=== PATIENT | male | born 1935 | race Caucasian/White ===

== ENCOUNTER 2020-04-22 17:41 | Inpatient (IN) | payer MEDICARE, SELFPAY ==
[~2020-04-22] VITALS: Ht 182.9 cm; Wt 92.5 kg
--- NOTE | 2020-04-22 17:44 | NUR ---
BIBA TAKEN TO BED 6
[2020-04-22 18:01] VITALS: BP 142/75
--- NOTE | 2020-04-22 18:18 | NUR ---
85YO M BIBA FROM [facility] [place] C/O GENERALIZED WEAKNESS, SOB X 5 DAYS. DENIES FEVER, COUGH. PT WAS HOSPITALIZED IN [facility] LAST 04/18/20 FOR SAME SYMPTOMS. TESTED COVID+ UNKNOWN WEEKS AGO. PER EMS, BLOOD SUGAR 439 EN ROUTE. UPON ASSESSMENT, AOX3. VSS. PT ON 15L O2 VIA NONREBREATHER MASK, SATURATING 98%. NORMAL HEART RATE REGULAR RHYTHM. CLEAR BREATH SOUNDS ON ALL LUNG GARCIA. PT POSITIONED COMFORTABLY IN BED, 2 SIDERAILS UP. ERMD MADE AWARE OF PT STATUS. PMH: HTN, DM, RENAL FAILURE, PROSTATE CA NKA
--- NOTE | 2020-04-22 19:20 | NUR ---
REPORT GIVEN TO PALMA MANRIQUEZ. ALL CARE TRANSFERRED AT THIS TIME.
--- NOTE | 2020-04-22 19:21 | NUR ---
X-Ray at bedside.
[2020-04-22 19:30] LABS: BASOPHILS % (AUTO) 0.2 % (0.0-2.0); HEMATOCRIT 32.5 % (36-52); HEMOGLOBIN 10.7 g/dL (12.0-18.0); LYMPHOCYTES # (AUTO) 0.2 K/uL (2.0-11.5); LYMPHOCYTES % (AUTO) 2.5 % (20.5-51.1); MEAN CORPUSCULAR HEMOGLOBIN 26 pg (27-31); MEAN CORPUSCULAR HGB CONC 33 g/dL (33-37); MEAN CORPUSCULAR VOLUME 79.1 fL (80-94); MONOCYTES # (AUTO) 0.1 K/uL (0.8-1.0); MONOCYTES % (AUTO) 1.6 % (1.7-9.3); NEUTROPHILS # (AUTO) 7.7 K/uL (1.8-7.7); NEUTROPHILS % (AUTO) 95.7 % (42.2-75.2); PLATELET COUNT (AUTO) 261 K/uL (140-450); RED CELL DISTRIBUTION WIDTH 15.5 % (11.6-13.7); WHITE BLOOD COUNT (AUTO) 8.1 K/uL (4.8-10.8)
--- NOTE | 2020-04-22 19:31 | NUR ---
EKG PERFORMED AT BEDSIDE. EKG READS SINUS RHYTHM @ 94
[2020-04-22 19:50] LABS: ANION GAP 17.4 (8-16); ASPARTATE AMINOTRANSFERASE 12 U/L (15-37); CARBON DIOXIDE 22.5 mmol/L (21-32); CHLORIDE 108 mmol/L (98-107); CREATININE 2.8 mg/dL (0.6-1.3); POTASSIUM 4.9 mmol/L (3.5-5.1); SODIUM SERUM 143 mmol/L (136-145); TOTAL BILIRUBIN 0.3 mg/dL (0.0-1.0)
[2020-04-22 19:52] LABS: GLUCOSE 556 mg/dL (74-106); UREA NITROGEN, BLOOD 99 mg/dL (7-18)
[2020-04-22 19:56] LABS: PROTHROMBIN TIME 11.2 secs (10.8-13.4)
--- NOTE | 2020-04-22 20:00 | NUR ---
18G SL ESTABLISHED RIGHT A/C
[2020-04-22 20:03] LABS: LACTATE DEHYDROGENASE 283 U/L (85-227)
--- NOTE | 2020-04-22 20:08 | NUR ---
UNABLE TO PROVIDE UA AT THIS TIME
[2020-04-22 20:09] LABS: D-DIMER > 5000 ng/ml (0-400); FIBRINOGEN 642 mg/dL (200-400)
[2020-04-22 20:11] LABS: C-REACTIVE PROTEIN QUANT 17.8 mg/dL (0.0-0.9)
[2020-04-22 20:23] LABS: RSV NEGATIVE (NEGATIVE)
[2020-04-22] MEDS ORDERED: INSULIN REGULAR, HUMAN 100 UNIT/ML VIAL IV SCH (20:25)
--- NOTE | 2020-04-22 20:35 | NUR ---
Dr. Mclean examining patient.
[2020-04-22] MEDS ORDERED: cefTRIAXone 1,000 MG VIAL ONE (21:32)
[2020-04-22] MEDS ORDERED: DEXAMETHASONE 10 MG/ML VIAL IVP SCH (23:05)
[2020-04-22] MEDS ORDERED: NACL 0.9% 1,000 ML IV SCH (23:05)
[2020-04-22] MEDS ORDERED: BLOOD GLUCOSE MONITORING 1 DEV DEV FS SCH (23:30)
--- NOTE | 2020-04-22 23:55 | NUR ---
STRAIGHT CATHED FOR UA
[2020-04-23] VITALS (9 sets, daily range): BP systolic 52–147; BP diastolic 65–121
[2020-04-23 00:19] LABS: APPEARANCE,URINE CLEAR (CLEAR); BILIRUBIN,URINE NEGATIVE (NEGATIVE); BLOOD, URINE 1+ (NEGATIVE); COLOR,URINE YELLOW (YELLOW); LEUKOCYTE ESTERASE ,URINE NEGATIVE (NEGATIVE); NITRITE, URINE NEGATIVE (NEGATIVE); PH,URINE 5.5 (5.0-9.0); UGLUCOSE 2+ (NEGATIVE)
[2020-04-23 00:29] LABS: RBC,URINE 0-5 /HPF (0-5)
[2020-04-23 00:30] LABS: URINE AMORPHOUS URATE 1+ /HPF (None Seen)
--- NOTE | 2020-04-23 02:12 | NUR ---
blood sugar 352 mg/dl
[2020-04-23] MEDS: INSULIN REGULAR, HUMAN 100 UNIT in NACL 0.9% 100 ML IV SCH ×8 (02:20→20:30)
[2020-04-23 06:58] LABS: BASOPHILS % (AUTO) 0.1 % (0.0-2.0); EOSINOPHILS % (AUTO) 0.1 % (0.0-4.0); HEMATOCRIT 33.7 % (36-52); LYMPHOCYTES # (AUTO) 0.3 K/uL (2.0-11.5); LYMPHOCYTES % (AUTO) 2.9 % (20.5-51.1); MEAN CORPUSCULAR HEMOGLOBIN 26 pg (27-31); MEAN CORPUSCULAR HGB CONC 33 g/dL (33-37); MEAN CORPUSCULAR VOLUME 78.3 fL (80-94); MONOCYTES # (AUTO) 0.2 K/uL (0.8-1.0); MONOCYTES % (AUTO) 1.3 % (1.7-9.3); NEUTROPHILS # (AUTO) 11.6 K/uL (1.8-7.7); NEUTROPHILS % (AUTO) 95.6 % (42.2-75.2); PLATELET COUNT (AUTO) 283 K/uL (140-450); RED BLOOD CELL COUNT(AUTO) 4.31 MIL/uL (4.20-6.10); RED CELL DISTRIBUTION WIDTH 15.3 % (11.6-13.7); WHITE BLOOD COUNT (AUTO) 12.1 K/uL (4.8-10.8)
[2020-04-23] MEDS ORDERED: MORPHINE SULFATE 2 MG/ML SYR IVP PRN (07:20)
[2020-04-23] MEDS ORDERED: ZOLPIDEM 5 MG TAB PO PRN (07:20)
[2020-04-23] MEDS ORDERED: ONDANSETRON 4 MG/2 ML VIAL IVP PRN (07:20)
[2020-04-23] MEDS ORDERED: DOCUSATE SODIUM 100 MG GELCAP PO PRN (07:20)
[2020-04-23] MEDS ORDERED: HYDROcodone/APAP 5/325 MG 1 TAB TAB PO PRN (07:20)
[2020-04-23] MEDS ORDERED: LORazepam 2 MG/ML VIAL IM/IVP PRN (07:20)
[2020-04-23] MEDS ORDERED: ALBUTEROL HFA MDI 90 MCG/ACTUATION 8 GM INH PRN ×2 (07:20→18:45)
[2020-04-23] MEDS ORDERED: cefTRIAXone 1,000 MG VIAL ONE (07:31)
[2020-04-23 07:52] LABS: ALBUMIN 2.1 g/dL (3.4-5.0); AMYLASE 70 U/L (25-115); ANION GAP 19.7 (8-16); ASPARTATE AMINOTRANSFERASE 14 U/L (15-37); CARBON DIOXIDE 22.6 mmol/L (21-32); CHLORIDE 113 mmol/L (98-107); CHOL/HDL RATIO 1.9 (1-4.5); CREATININE 2.7 mg/dL (0.6-1.3); GLUCOSE 191 mg/dL (74-106); HDL CHOLESTEROL 52 mg/dL (40-60); LDL (CALC) 38 mg/dL (60-100); LIPASE 287 U/L (73-393); MAGNESIUM 3.2 mg/dL (1.8-2.4); PHOSPHORUS 3.6 mg/dL (2.5-4.9); POTASSIUM 4.3 mmol/L (3.5-5.1); SODIUM SERUM 151 mmol/L (136-145); THYROID STIMULATING HORMONE 0.22 uIU/mL (0.34-3.74); TOTAL BILIRUBIN 0.2 mg/dL (0.0-1.0); TRIGLYCERIDES 52 mg/dL (30-150)
[2020-04-23] MEDS ORDERED: AZITHROMYCIN 250 MG TAB PO ONE (08:00)
[2020-04-23] MEDS: ZINC SULF 220 MG CAP PO SCH ×3 (08:15→22:37)
[2020-04-23] MEDS: ENOXAPARIN 30 MG/0.3 ML SYR SUBQ SCH (08:15)
--- NOTE | 2020-04-23 08:29 | NUR ---
PATIENT GOWN AND LINEN CHANGED, DIAPER PLACED ON PATIENT
[2020-04-23 08:54] LABS: UREA NITROGEN, BLOOD 104 mg/dL (7-18)
[2020-04-23] MEDS ORDERED: ENOXAPARIN 40 MG/0.4 ML SYR SUBQ SCH (09:00)
[2020-04-23] MEDS ORDERED: ASCORBIC ACID 500 MG TAB PO SCH (09:00)
[2020-04-23] MEDS ORDERED: VITAMIN D 400 IU TAB PO SCH (09:00)
--- NOTE | 2020-04-23 09:15 | NUR ---
Patient will be admitted to [facility]. Admited to ICU. Will go to room 3. Belongings list completed. Report to JUNIE WALDROP.
--- NOTE | 2020-04-23 09:30 | NUR ---
PATIENT ARRIVED AT 0930 FROM ED. REPORT GIVEN AT BEDSIDE BY RENETTA WALDROP. PT CONFUSED, LETHARGIC, AND RESTLESS, BUT ABLE TO REORIENT. VITALS STABLE WITH NONREBREATHER AT 10L, PT IN SINUS TACH IN LOW 100S, AND BREATHING MID 20S. PT APPEARS CALM AND DENIES PAIN. PULSE REGULAR. WHEN ASKED QUESTIONS, PATIENT'S SPEECH IS SLIGHTLY GARBLED AND MUMBLED. 20 GAUGE IV CAPPED AND PATENT IN R FOREARM. WILL CONTINUE TO MONITOR AND ASSESS.
[2020-04-23] MEDS: NACL 0.45% 1,000 ML IV SCH ×2 (10:18→22:36)
--- NOTE | 2020-04-23 10:25 | NUR ---
CALLED TO PTS ROOM FOR DESATURATION. FOUND PT ON SIMPLE MASK FLUSHED WITH SPO2 85%. PLACED ON 15L NRB, SPO2 WENT UP TO 98%. WILL CONTINUE TO MONITOR.
--- NOTE | 2020-04-23 11:00 | NUR ---
PICC LINE TEAM PRESENT IN ROOM PLACING LINE FOR NEED FOR POTENTIAL PRESSOR USE. PATIENT CONSENT RECEIVED. BP CURRENTLY STABLE. WILL CONTINUE TO MONITOR AND ASSESS.
--- NOTE | 2020-04-23 12:25 | NUR ---
PT GETTING RESTLESS CONFUSE TAKE OFF HIS CLOSE ,TRY TO GET OUT HIS OF BED.ATIVAN IV P GIVING ORDERED.
[2020-04-23] MEDS ORDERED: DEXMEDETOMIDINE HCL 400 MCG in NACL 0.9% 96 ML IV PRN (12:55)
--- NOTE | 2020-04-23 13:00 | NUR ---
PATIENT NO LONGER REORIENTABLE. PT REMOVED IV FROM R FOREARM AND ATTEMPTING TO REMOVE TELE LEADS AND PICC LINE. PT CRAWLING OVER BED RAILS. NOTIFIED MD AND REQUESTED ORDER FOR PRECEDEX AND RESTRAINTS. PRN ATIVAN NOT EFFECTIVE. WILL CONTINUE TO MONITOR
--- NOTE | 2020-04-23 13:40 | NUR ---
PT. HARDEEP JACOB [[phone]] CHECK FOR HIS CONDITION..
--- NOTE | 2020-04-23 15:07 | NUR ---
PATIENT HAS BEEN SCREENED AND CATEGORIZED HIGH NUTRITION RISK. PATIENT WILL BE SEEN WITHIN 1-2 DAYS OF ADMISSION. 04/23/20-04/24/[address]
[2020-04-23 15:37] LABS: CARBON DIOXIDE 22.7 mmol/L (21-32); CHLORIDE 113 mmol/L (98-107); CREATININE 2.8 mg/dL (0.6-1.3); GLUCOSE 295 mg/dL (74-106); POTASSIUM 4.7 mmol/L (3.5-5.1); SODIUM SERUM 149 mmol/L (136-145)
[2020-04-23 15:39] LABS: UREA NITROGEN, BLOOD 108 mg/dL (7-18)
--- NOTE | 2020-04-23 16:00 | NUR ---
PRECEDEX GTT OFF AND PT APPEARS CALM AND VITAL SIGNS STABLE. NONREBREATHER REDUCED TO 8L. SINUS RHYTHM. PT CONTINUOUSLY CONFUSED, BUT PLEASANT. WILL CONTINUE TO MONITOR AND ASSESS.
[2020-04-23] MEDS ORDERED: DEXTROSE 50% 50 ML SYR IVP PRN (18:10)
[2020-04-23] MEDS ORDERED: AZITHROMYCIN 250 MG TAB PO SCH (18:45)
[2020-04-23] MEDS: BLOOD GLUCOSE MONITORING 1 DEV DEV FS SCH ×3 (19:49→22:44)
--- NOTE | 2020-04-23 20:00 | NUR ---
RECEIVED PATIENT IN BED. PT DROWSY BUT EASILY AROUSABLE. PATIENT AOX1. PT PLACED ON NRB AT 12L, O2 SAT 98%. NO SOB OR S/S OF DISTRESS AT THIS TIME. DOUBLE LUMEN PICC NOTED ON THE RIGHT UPPER ARM, BOTH LUMENS FLUSH WITH NO RESISTANCE AND WITH GOOD BLOOD RETURN. PT CURRENTLY ON INSULIN GTT. BS 186. WILL CONTINUE TO MONITOR
[2020-04-23 20:26] LABS: ANION GAP 16.8 (8-16); CARBON DIOXIDE 23.6 mmol/L (21-32); CHLORIDE 113 mmol/L (98-107); CREATININE 2.6 mg/dL (0.6-1.3); GLUCOSE 213 mg/dL (74-106); POTASSIUM 4.4 mmol/L (3.5-5.1); SODIUM SERUM 149 mmol/L (136-145)
--- NOTE | 2020-04-23 20:30 | NUR ---
PT TEMP 94.4 TAKEN AXILLARY. PATIENT PLACED ON GHASSAN HUGGER
[2020-04-23 20:37] LABS: UREA NITROGEN, BLOOD 111 mg/dL (7-18)
[2020-04-23] MEDS ORDERED: BLOOD GLUCOSE MONITORING 1 DEV DEV FS SCH (21:00)
--- NOTE | 2020-04-23 21:16 | NUR ---
PT'S TEMP 96.9 AXILLARY
--- NOTE | 2020-04-23 21:40 | NUR ---
RT WAS NOTIFIED THAT PT IS ON 8L NRB MASK. SWITCHED TO 8L BUBBLE HIGH FLOW NASAL CANNULA. SPO2 95%. RN NOTIFIED. WILL CONTINUE TO MONITOR.
[2020-04-23] MEDS: DEXT 5% / NACL 0.45% 1,000 ML IV SCH (22:36)
--- NOTE | 2020-04-23 23:00 | NUR ---
OBTAINED CONSENT TO TRANSFUSE PLASMA FROM PATIENT'S NEPHEW, MARYANA JACOB.
[2020-04-24] VITALS (19 sets, daily range): BP systolic 115–162; BP diastolic 55–86
[2020-04-24] MEDS: BLOOD GLUCOSE MONITORING 1 DEV DEV FS SCH ×23 (00:31→23:00)
--- NOTE | 2020-04-24 03:08 | NUR ---
SPOKE TO DR ALVA AND INFORMED HER ABOUT PATIENT'S LATEST BLOOD SUGAR OF 90 AND ANION GAP OF 16.8. PER DOCTOR, FOLLOW DKA PROTOCOL AND TITRATE D5 1/2NS NEEDED.
[2020-04-24 04:24] LABS: ANION GAP 16.5 (8-16); CARBON DIOXIDE 22.3 mmol/L (21-32); CHLORIDE 116 mmol/L (98-107); CREATININE 2.5 mg/dL (0.6-1.3); GLUCOSE 164 mg/dL (74-106); POTASSIUM 3.8 mmol/L (3.5-5.1); SODIUM SERUM 151 mmol/L (136-145)
[2020-04-24 04:26] LABS: UREA NITROGEN, BLOOD 108 mg/dL (7-18)
--- NOTE | 2020-04-24 05:25 | NUR ---
1 UNIT CONVALESCENT PLASMA TRANSFUSED. NO ADVERSE REACTION. PATIENT TOLERATED WELL
--- NOTE | 2020-04-24 07:15 | NUR ---
HANDOFF REPORT RECEIVED FROM NEWS COPY EDITOR RN. POC REVIEWED AND DISCUSSED. PT IS RESTLESS. PULLING TUBES AND LINES. BILATERAL SOFT WRIST RESTRAINTS IN PLACE. RELEASED MADE. PALPABLE PULSES TO DISTAL EXTREMITIES. ON 4L O2 VIA N/C. NO SOB NOTED. NO CYANOSIS. ON INSULIN GTT 0.05 U/KG/H. CARMINE PICC INTACT AND PATENT. 1/2 NS RUNNING AT 150 ML/HR. PRECEDEX GTT OFF. HOB ELEVATED. AFEBRILE. WILL CONTINUE TO MONITOR.
--- NOTE | 2020-04-24 08:15 | NUR ---
SEEN AND EXAMINED BY DR. ALVA. NOTIFIED PT'S ELEVATED BUN/CREA. WILL FF UP NEPRO CONSULT.
[2020-04-24] MEDS: INSULIN LISPRO SLIDING SCALE 100 UNITS/ML VIAL SUBQ PRN (08:48)
[2020-04-24] MEDS: ENOXAPARIN 30 MG/0.3 ML SYR SUBQ SCH (08:57)
[2020-04-24] MEDS: AZITHROMYCIN 250 MG TAB PO SCH (08:58)
[2020-04-24] MEDS: VITAMIN D 400 IU TAB PO SCH (08:58)
[2020-04-24] MEDS: ASCORBIC ACID 500 MG TAB PO SCH (08:58)
[2020-04-24] MEDS: ZINC SULF 220 MG CAP PO SCH ×2 (08:59→20:27)
[2020-04-24] MEDS ORDERED: AZITHROMYCIN 250 MG TAB PO SCH (09:00)
[2020-04-24] MEDS: NACL 0.45% 1,000 ML IV SCH ×2 (09:00→21:44)
[2020-04-24] MEDS ORDERED: ENOXAPARIN 40 MG/0.4 ML SYR SUBQ SCH (09:00)
[2020-04-24 09:04] LABS: CARBON DIOXIDE 19.4 mmol/L (21-32); CHLORIDE 113 mmol/L (98-107); CREATININE 2.7 mg/dL (0.6-1.3); GLUCOSE 250 mg/dL (74-106); POTASSIUM 4.4 mmol/L (3.5-5.1); SODIUM SERUM 150 mmol/L (136-145)
[2020-04-24 09:23] LABS: UREA NITROGEN, BLOOD 111 mg/dL (7-18)
--- NOTE | 2020-04-24 11:00 | NUR ---
SEEN BY PHYSICAL THERAPIST. PT PERFORMED. GATE UNSTABLE.
[2020-04-24] MEDS: DEXT 5% / NACL 0.45% 1,000 ML IV SCH (12:04)
[2020-04-24 12:25] LABS: ANION GAP 20.7 (8-16); CARBON DIOXIDE 17.7 mmol/L (21-32); CHLORIDE 113 mmol/L (98-107); CREATININE 2.7 mg/dL (0.6-1.3); GLUCOSE 304 mg/dL (74-106); POTASSIUM 4.4 mmol/L (3.5-5.1); SODIUM SERUM 147 mmol/L (136-145)
[2020-04-24 12:27] LABS: UREA NITROGEN, BLOOD 110 mg/dL (7-18)
--- NOTE | 2020-04-24 14:21 | NUR ---
04/24/20 RD INITIAL ASSESSMENT COMPLETED PLEASE REFER TO NUTRITION ASSESSMENT UNDER CARE ACTIVITY FOR ESTIMATED NUTRITIONAL NEEDS. 1. CONTINUE CLEAR LIQUID DIET TOLERATED 2. PENDING SWALLOW EVALUATION FOR DIET TEXTURE RECOMMENDATIONS 3. RECOMMEND CCHO 60 [address] DI[address] RESTRICTIONS 4. RD TO FOLLOW-UP 2-3 DAYS, HIGH RISK JOSH NICHOLSON RD
--- NOTE | 2020-04-24 15:23 | NUR ---
SEEN BY SPEECH THERAPIST, RENDERED SWALLOW EVAL. TOTAL CARE GIVEN. NO CHANGE OF CONDITION.
--- NOTE | 2020-04-24 16:00 | NUR ---
SPEECH THERAPIST RECOMMENDS THICK/NECTAR CONSISTENCY DIET. WILL FF-UP. Addendum: 04/24/20 at 1809 by Adonay Palafox RN PUREE/NECTAR THICK LIQUIDS DIET
[2020-04-24 16:58] LABS: ANION GAP 21.5 (8-16); CARBON DIOXIDE 19.1 mmol/L (21-32); CHLORIDE 112 mmol/L (98-107); CREATININE 2.7 mg/dL (0.6-1.3); GLUCOSE 321 mg/dL (74-106); POTASSIUM 4.6 mmol/L (3.5-5.1); SODIUM SERUM 148 mmol/L (136-145)
--- NOTE | 2020-04-24 17:03 | NUR ---
*ST: Bedside Swallow Evaluation* Pt is 85 yo [place] [facility] [place]. Work-up at this hospital noted (+) COVID-19 PCR 2/2 and (+) influenza B. Pt now started on Tamiflu. Pt hospitalized and d/c from OSH 04/18/20 for same symptoms of SOB, +COVID PCR at OSH 04/15/20. PMHx CKD, prostate CA, HTN, DM. CXR 2/3 - bilat multilobar PNA (with peripheral distribution), stable; findings could represent coronavirus (COVID-19) infection; other forms of PNA are not excluded. Cleared with RNAdonay, for BDSE. Pt seen bedside, on +COVID-19 isolation precautions, on 4L O2 nc with humidifier, O2 sats labile and ranged from 88-96% during session, ?anxious, distracted, often had eyes closed and talked about persons or events not pertaining to or relevant to present setting. Pt also had GHASSAN-hugger in place. Per chart, Pt received Chopped/Thin Liquids at [facility] [place] to [place]. Pt had dentures in place. Ice chips x2, ~1oz thin by straw and tsp, ~2oz apple sauce, 1 tsp canned MS pears, and ~1oz nectar thick juice given by tsp. Pt did not consistently engage in labial closure to strip bolus from tsp, requiring [employer] to touch upper lip with tsp and occasionally pour bolus into oral cavity. With apple sauce trials, Pt often threw his head back despite [employer] requesting Pt to keep his head neutral. Noted slight residue in oral cavity post swallow of puree but no overt coughing nor throat clearing. With 1 tsp canned MS pears, Pt used front teeth to breakdown bolus but no anterior-posterior transfer observed requiring removal by [employer]. Pt sipped then blew thin liquid back into cup via straw. Fairly consistent spillage from L labial seal observed with tsp, suspect poor control of bolus, coughing with 50% of thin trials. With nectar, little to no spillage observed, slight oral residue, no overt coughing nor throat clearing. Pt declined further POs, verbalizing that he was cold and wanted to rest. Plan of care d/w pt and pts RN. P: Rec downgrade to Puree/[place] Thick Liquids by tsp, 1:1 feed Follow safe swallow strategies, oral care, aspiration precautions [employer] f/u for possible texture/consistency upgrade if Pt sustains attention to task -Quin Velazquez MA, [facility]-[employer] Addendum: 04/24/20 at [address] Amended: Links added.
[2020-04-24] MEDS: SODIUM BICARBONATE 650 MG TAB PO SCH (17:07)
[2020-04-24 17:09] LABS: UREA NITROGEN, BLOOD 103 mg/dL (7-18)
--- NOTE | 2020-04-24 19:30 | NUR ---
RECEIVED REPORT FROM DAYSHIFT NURSE. PATIENT ALERT AND ORIENTED X2 TO PERSON AND EVENT. PATIENT ALERT AND TRACKING WITH EYES WHEN ENTERING THE ROOM. PATIENT NASAL CANNULA AT 4 LPM, TOLERATING WELL, O2 SATURATION AT 96%. HOB ABOVE 30 DEGREES, SITTING IN A POSITION OF COMFORT. CONTINUOUS CARDIAC MONITORING, SINUS TACHYCARDIA AT 107 HR. IV ACCESS AT RIGHT UPPER PICC LINE DOUBLE LUMEN. DRIPS CURRENTLY RUNNING ARE 0.05 UNITS/KG/HR AND 0.45% NS 150 ML/HR. PATIENT WEIGHT IS 87.9 KG. PATIENT ASSISTED WITH ADL'S AT BEDSIDE. PATIENT IN SOFT WRIST RESTRAINTS, OCCASIONALLY TRYING TO PULL OUT LINES, POSITIVE PMSC'S (PULSE, MOTOR, SENSORY, CAP REFILLS). WILL CONTINUE TO ROUND AND CHECK/RELEASE/REAPPLY RESTRAINTS HOURLY. PATIENT OFFLOADED FROM PRESSURE POINTS WITH USE OF PILLOWS AND REPOSITIONING. BED LOCKED AND LOWERED INTO A POSITION OF SAFETY. WILL CONTINUE TO CLOSELY MONITOR AND FREQUENTLY ROUND THROUGHOUT SHIFT.
--- NOTE | 2020-04-24 19:33 | NUR ---
HANDOFF REPRT ENDORSED TO OBSTETRICS/GYNECOLOGY NURSE RN. POC REVIEWED AND DISCUSSED. NO CHANGE OF CONDITION. PT IS RESTING, EYES OPEN. KEPT BILATERAL SOFT WRIST RESTRAINTS. BS 368. PT TOLERATED WELL WITH PUREE/THICK LIQUID DIET.
--- NOTE | 2020-04-24 20:00 | NUR ---
ACCUCHECK, SAFETY CHECKS, REPOSITIONING, RESTRAINTS RELEASED AND REAPPLIED WITH NURSE SUPERVISION. WILL CONTINUE TO MONITOR CLOSELY AND FREQUENTLY ROUND.
[2020-04-24 21:00] LABS: ANION GAP 22.2 (8-16); CARBON DIOXIDE 17.7 mmol/L (21-32); CHLORIDE 110 mmol/L (98-107); CREATININE 2.8 mg/dL (0.6-1.3); POTASSIUM 4.9 mmol/L (3.5-5.1)
--- NOTE | 2020-04-24 21:00 | NUR ---
ACCUCHECK, RESTRAINTS RELEASED AND REAPPLIED, SAFETY CHECKS, REPOSITIONING AND POSITIVE PMSC'S. WILL CONTINUE TO CLOSELY MONITOR AND FREQUENTLY ROUND.
[2020-04-24 21:02] LABS: GLUCOSE 515 mg/dL (74-106); UREA NITROGEN, BLOOD 103 mg/dL (7-18)
--- NOTE | 2020-04-24 21:30 | NUR ---
PATIENT RESTING COMFORTABLY, HOB 30 DEGREES, TOLERATING NASAL CANNULA 4 LPM WELL, RESTING CONTENT AND COMFORTABLE. WILL CONTINUE TO DO Q1 ACCUCHECKS. WILL CONTINUE TO CLOSELY MONITOR AND FREQUENTLY ROUND.
[2020-04-24 21:52] LABS: SODIUM SERUM 145 mmol/L (136-145)
--- NOTE | 2020-04-24 22:00 | NUR ---
CALLED DR. ALVA AND ADVISED OF ELEVATED BLOOD SUGAR CRITICAL LAB VALUE, CALLED IN FROM THE LAB. WILL CONTINUE TO CLOSELY MONITOR AND FREQUENTLY ROUND.
--- NOTE | 2020-04-24 22:10 | NUR ---
ACCUCHECK, RESTRAINTS RELEASED AND REAPPLIED, POSITIVE PMSC'S INTACT. PATIENT CONTENT AND TRYING TO REST/SLEEP. TOLERATING NASAL CANNULA 4 LPM WELL. WILL CONTINUE TO CLOSELY MONITOR AND FREQUENTLY ROUND.
--- NOTE | 2020-04-24 23:00 | NUR ---
ACCUCHECK, RESTRAINTS RELEASED AND REAPPLIED, POSITIVE PMSC'S INTACT, REPOSITIONING AND COMFORT MEASURES. PATIENT CONTINUES TO REST. WILL CONTINUE TO CLOSELY MONITOR AND FREQUENTLY ROUND.
[2020-04-25] VITALS (24 sets, daily range): BP systolic 115–169; BP diastolic 55–93
--- NOTE | 2020-04-25 | NUR ---
PATIENT CONTINUES TO SLEEP, CONTENT. ACCUCHECK, RESTRAINTS RELEASED AND REAPPLIED. SAFETY CHECKS, REPOSITIONING AND COMFORT MEASURES PROVIDED. NORMAL SINUS ON THE MONITOR. WILL CONTINUE TO CLOSELY MONITOR AND FREQUENTLY ROUND.
[2020-04-25 00:47] LABS: ANION GAP 21.1 (8-16); CARBON DIOXIDE 16.9 mmol/L (21-32); CHLORIDE 110 mmol/L (98-107); CREATININE 2.8 mg/dL (0.6-1.3); SODIUM SERUM 143 mmol/L (136-145)
[2020-04-25 00:49] LABS: GLUCOSE 531 mg/dL (74-106); UREA NITROGEN, BLOOD 102 mg/dL (7-18)
[2020-04-25] MEDS: BLOOD GLUCOSE MONITORING 1 DEV DEV FS SCH ×24 (01:00→23:00)
--- NOTE | 2020-04-25 01:00 | NUR ---
PATIENT HYGIENE, REPOSITIONING, COMFORT MEASURES AND SAFETY CHECKS PROVIDED. ACCUCHECK AND RESTRAINTS RELEASED AND REAPPLIED. WILL CONTINUE TO CLOSELY MONITOR AND FREQUENTLY ROUND.
[2020-04-25] MEDS: INSULIN REGULAR, HUMAN 100 UNIT in NACL 0.9% 100 ML IV SCH ×4 (01:40→15:44)
--- NOTE | 2020-04-25 02:00 | NUR ---
ACCUCHECK, RESTRAINTS RELEASED AND REAPPLIED, PMSC'S POSITIVE AND INTACT. REPOSITIONING AND COMFORT MEASURES IN PLACE. PATIENT STILL TOLERATING NASAL CANNULA 4 LPM WELL. TOLERATING INSULIN/IVF THERAPY WELL. WILL CONTINUE TO CLOSELY MONITOR AND FREQUENTLY ROUND.
--- NOTE | 2020-04-25 03:00 | NUR ---
PATIENT CONTINUES TO SLEEP/REST IN A POSITION OF COMFORT. PATIENT RESTRAINTS RELEASED AND REAPPLIED, PMSC'S POSITIVE AND INTACT. ACCUCHECK PROVIDED. PATIENT CONTINUES TO BE NORMAL SINUS ON THE MONITOR. WILL CONTINUE TO CLOSELY MONITOR AND FREQUENTLY ROUND.
--- NOTE | 2020-04-25 04:00 | NUR ---
PATIENT PROVIDED FRESH LINENS, SPONGE BATH, HYGIENE CARE, REPOSITIONING AND COMFORT MEASURES. PATIENT PLACED BACK INTO POSITION OF COMFORT. RESTRAINTS RELEASED AND REAPPLIED, POSITIVE PMSC'S INTACT. RESTING COMFORTABLY. WILL CONTINUE TO CLOSELY MONITOR AND FREQUENTLY ROUND.
--- NOTE | 2020-04-25 05:00 | NUR ---
PATIENT SLEEPING IN A POSITION OF COMFORT. CONTINUES TO TOLERATE THE INSULIN/IVF THERAPIES WELL. NASAL CANNULA 4 LPM COMFORTABLE FOR THE PATIENT. REPOSITIONING, ACCUCHECK, RESTRAINTS RELEASED AND REAPPLIED, POSITIVE PMSC'S INTACT. WILL CONTINUE TO CLOSELY MONITOR AND FREQUENTLY ROUND.
[2020-04-25 05:40] LABS: BASOPHILS % (AUTO) 0.1 % (0.0-2.0); HEMATOCRIT 30.3 % (36-52); HEMOGLOBIN 9.9 g/dL (12.0-18.0); LYMPHOCYTES # (AUTO) 0.1 K/uL (2.0-11.5); LYMPHOCYTES % (AUTO) 1.4 % (20.5-51.1); MEAN CORPUSCULAR HEMOGLOBIN 26 pg (27-31); MEAN CORPUSCULAR HGB CONC 33 g/dL (33-37); MEAN CORPUSCULAR VOLUME 79.1 fL (80-94); MONOCYTES # (AUTO) 0.1 K/uL (0.8-1.0); MONOCYTES % (AUTO) 0.9 % (1.7-9.3); NEUTROPHILS % (AUTO) 97.6 % (42.2-75.2); PLATELET COUNT (AUTO) 213 K/uL (140-450); RED BLOOD CELL COUNT(AUTO) 3.84 MIL/uL (4.20-6.10); RED CELL DISTRIBUTION WIDTH 15.6 % (11.6-13.7); WHITE BLOOD COUNT (AUTO) 10.3 K/uL (4.8-10.8)
[2020-04-25 06:18] LABS: MAGNESIUM 2.9 mg/dL (1.8-2.4); PHOSPHORUS 5.6 mg/dL (2.5-4.9)
[2020-04-25 07:08] LABS: ANION GAP 24.6 (8-16); CARBON DIOXIDE 14.5 mmol/L (21-32); CHLORIDE 111 mmol/L (98-107); CREATININE 2.7 mg/dL (0.6-1.3); POTASSIUM 5.1 mmol/L (3.5-5.1); SODIUM SERUM 145 mmol/L (136-145)
--- NOTE | 2020-04-25 07:30 | NUR ---
REPORT GIVEN AND CARE TRANSFERRED TO [facility].
[2020-04-25] MEDS: DEXT 5% / NACL 0.45% 1,000 ML IV SCH ×2 (08:00→14:03)
[2020-04-25 08:23] LABS: GLUCOSE 496 mg/dL (74-106); UREA NITROGEN, BLOOD 97 mg/dL (7-18)
[2020-04-25 08:28] LABS: ANION GAP 22.6 (8-16); CARBON DIOXIDE 16.8 mmol/L (21-32); CHLORIDE 115 mmol/L (98-107); CREATININE 2.6 mg/dL (0.6-1.3); GLUCOSE 197 mg/dL (74-106); POTASSIUM 4.4 mmol/L (3.5-5.1); SODIUM SERUM 150 mmol/L (136-145)
[2020-04-25 08:45] LABS: UREA NITROGEN, BLOOD 94 mg/dL (7-18)
[2020-04-25] MEDS: OSELTAMIVIR PHOSPHATE 30 MG CAP PO SCH (09:00)
[2020-04-25] MEDS: VITAMIN D 400 IU TAB PO SCH (09:37)
[2020-04-25] MEDS: SODIUM BICARBONATE 650 MG TAB PO SCH ×3 (09:37→17:44)
[2020-04-25] MEDS: ZINC SULF 220 MG CAP PO SCH ×2 (09:38→21:15)
[2020-04-25] MEDS: ASCORBIC ACID 500 MG TAB PO SCH (09:38)
[2020-04-25] MEDS: AZITHROMYCIN 250 MG TAB PO SCH (09:39)
[2020-04-25] MEDS: ENOXAPARIN 30 MG/0.3 ML SYR SUBQ SCH (09:51)
--- NOTE | 2020-04-25 10:11 | NUR ---
MEDICINE WAS GIVEN JUST 25% ONLY BECAUSE PT IS VERY SLEEPY AND MENTIONED TO CHARGE NURSE, sPEECH THERAPIST WAS HERE AND ADVISED TO HOLD PO INCLUDING MEDS IF PT UNABLE TO DUE TO LETHARGINESS
--- NOTE | 2020-04-25 10:21 | NUR ---
*ST: Note* Attempted f/u for ongoing swallow analysis and possible diet consistency upgrade. However, per charge SEWING DEMONSTRATOR, Edwige, Pt somnolent since the beginning of shift and POs withheld. Per SEWING DEMONSTRATOR, made Pt NPO at this time secondary to very high blood sugar value. -Quin Velazquez MA, CCC-[employer]AST[employer]
--- NOTE | 2020-04-25 11:00 | NUR ---
SPOKE TO DR ALVA REGARDING PT UNABLE TO SWALLOW TODAY PT IS VERY LETHARGIC, UNABLE TO GIVE PO MEDICATIONS. Addendum: 04/25/20 at 1122 by Edwige Sawant RN DR BASS UNDERSTANDING, WILL CONTINUE TO MONITOR.
--- NOTE | 2020-04-25 11:13 | NUR ---
SOCIAL WORK NOTE: Patient's Orientation Unable To Assess Information Provided By PALMA MONTES Comments SW WAS UNABLE TO MEET PATIENT AT BEDSIDE. SW CONTACTED JYOTI TO COMPLETE ASSESSMENT. Lead Furnace Operator, Realtionship and Phone Number PALMA MONTES [phone] NIDIA JACOB NEPHEW [phone] Healthcare Power of Event Sales Representative No Does Patient Have a POLST No Identifying Problems No Social Work Triggers Is A Social Work Consult Needed No Mandate Report Filed No Explanation Of Identifying Problems PATIENT IS AN 85-YEAR-OLD MALE ADMITTED FOR SEPSIS AND COVID. PATIENT HAS PMHX OF CKD, DM, AND HTN. Admitted From Jail Facility Jail Facility [facility] - [phone] Pre-Admission Level Of Functioning Status Independent With DME Prior Resources/Services Used In Last 12 Months Home Infusion Services SNF Rehab/Skilled Prior Resources/Service Comments PAT[place] [facility] [place] Home Oxygen Dialysis Comments N/A Patient Had Caregiver No Home Support No Caregiver Issues Financial Issues No Known Financial Issue Referral To The Financial Counselor Needed No Factors/Needs No D/C Needs Identified Explanation And Or Other Factors Affecting/Possible DC Needs JYOTI PALMA NIDIA STATED THAT SHE WOULD PREFER IF PATIENT RETURNS HOME AT DISCHARGE WITH HOME HEALTH. PALMA PROVIDED ADDRSES: [address] [place] [address]. PALMA STATED SHE WOULD PROVIDE TRANSPORTATION AT DISCHARGE. Pt/Rep Participated In Discharge Plan Yes Patient/Family Agress With Discharge Plan Yes Discharge Plan Comments TENTATIVE DISCHARGE PLAN IS FOR PATIENT TO RETURN HOME. DC Plan Status Initiated
--- NOTE | 2020-04-25 12:14 | NUR ---
bs is 263 and IV .5 N. Saline up to 200ml/hr
[2020-04-25 12:30] LABS: ANION GAP 23.7 (8-16); CHLORIDE 112 mmol/L (98-107); CREATININE 2.5 mg/dL (0.6-1.3); GLUCOSE 312 mg/dL (74-106); POTASSIUM 4.7 mmol/L (3.5-5.1); SODIUM SERUM 146 mmol/L (136-145)
[2020-04-25 12:31] LABS: UREA NITROGEN, BLOOD 93 mg/dL (7-18)
[2020-04-25] MEDS: NACL 0.45% 1,000 ML IV SCH (13:17)
--- NOTE | 2020-04-25 13:20 | NUR ---
will let Dr holbrook will be informed
[2020-04-25 16:37] LABS: ANION GAP 25.3 (8-16); CARBON DIOXIDE 12.7 mmol/L (21-32); CHLORIDE 112 mmol/L (98-107); CREATININE 2.6 mg/dL (0.6-1.3); GLUCOSE 374 mg/dL (74-106); SODIUM SERUM 145 mmol/L (136-145)
[2020-04-25 16:40] LABS: UREA NITROGEN, BLOOD 93 mg/dL (7-18)
--- NOTE | 2020-04-25 17:00 | NUR ---
PT HAD BEEN TACHYPNEIC BET 35-38 ALL DAY AND OBSERVED TO BE DESATURATING TO 88% AT 4 LITERS HUMIDIFIED 02 AND CHARGE NURSE WAS INFORMED AND RESP THERAPIST WAS CALLED. ATIVAN I MG iVP GIVEN TO BRING DOWN RR. rT CAME AND INCREASE 02 AT 10 LITERS PER NASAL CANNULA HUMIDIFIED. PLACE PT , ON HIGH FOWLERS POSITION AND SUCTIONED OBTAINING SLIGHT BLOODY THICK SECRETIONS AND ABG DONE. ABG RESULT WITH BICARB -10. [facility] WAS CALLED BY CHARGE NURSE
--- NOTE | 2020-04-25 17:41 | NUR ---
dR CULLEN WAS CALLED AND INFORMED HER THE HIGH BLOOD SUGAR RESULT Addendum: 04/25/20 at 1743 by Agency NursePALMA RN WRONG PT WITH THE ABOVE NOTE
--- NOTE | 2020-04-25 17:45 | NUR ---
SPOKE TO DR. NAIDA KAYE REGARDING PT ABG RESULT BICARB 10.4. PER DR TO ORDER D5W WITH 3 AMPS OF BICARB @ 100ML/HR, AND TO DC SODIUM BICARB TABLETS. WILL PUT IN ORDERS AND CONTINUE WITH ORDERS.
[2020-04-25] MEDS ORDERED: SODIUM BICARBONATE 8.4% 150 MEQ in DEXTROSE 5% 1,000 ML IV SCH (18:15)
[2020-04-25] MEDS: ACETAMINOPHEN 325 MG TAB PO PRN (18:22)
--- NOTE | 2020-04-25 19:30 | NUR ---
RECEIVED REPORT FROM DAYSGAFT NURSE. PATIENT ALERT AND ORIENTED X1 TO NAME, MUMBLING AND LETHARGIC. PATIENT ALERT AND TRACKING WITH EYES WHEN FIRST WALKING IN THE ROOM. PATIENT FOUND ON NASAL CANNULA 12 LPM, HUMIDIFIED OXYGEN, SATURATING AT 94%. PATIENT IN THE SEMI FOWLERS POSITION, ABOVE 30 DEGREES, TOLERATING WELL. PATIENT CONNECTED TO CONTINUOUS CARDIAC MONITORING, SINUS TACHYCARDIA ON THE MONITOR AT 108. PATIENT RESPIRATIONS BETWEEN 28 AND 34 BPM, TACHYPNEIC. PATIENT NPO EXCEPT FOR MEDS. IV ACCESS RIGHT UPPER ARM PICC LINE DOUBLE LUMEN. IV DRIPS CURRENTLY RUNNING INCLUDE INSULIN AT 0.1 UNITS/KG/HR AND SODIUM BICARB D5% AT 100 ML/HR. ACCUCHECKS Q1. SOFT WRIST RESTRAINT CHECKS Q1. PATIENT WEIGHT IS 90.7 KG. PATIENT HAS A PATRICIA CATH THAT IS SECURED, PATENT AND INTACT. THE BED IS LOWERED AND LOCKED AND IN A POSITION OF SAFETY. PATIENT OFFLOADED FROM PRESSURE POINTS WITH USE OF REPOSITIONING AND PILLOWS. WILL CONTINUE TO FREQUENTLY ROUND AND CLOSELY MONITOR THROUGHOUT THE SHIFT.
[2020-04-25 20:35] LABS: ANION GAP 26.6 (8-16); CARBON DIOXIDE 12.5 mmol/L (21-32); CHLORIDE 111 mmol/L (98-107); CREATININE 2.7 mg/dL (0.6-1.3); POTASSIUM 5.1 mmol/L (3.5-5.1); SODIUM SERUM 145 mmol/L (136-145)
[2020-04-25 20:38] LABS: GLUCOSE 446 mg/dL (74-106); UREA NITROGEN, BLOOD 97 mg/dL (7-18)
--- NOTE | 2020-04-25 21:30 | NUR ---
CONTINUING TO PERFORM Q1 ACCUCHECKS, SAFETY CHECKS, RESTRAINTS RELEASED AND REAPPLIED, ORAL SUCTIONING/CARE, COMFORT MEASURES, HYGIENE AND REPOSITIONING. WILL CONTINUE TO FREQUENTLY ROUND AND CLOSELY MONITOR.
[2020-04-25] MEDS ORDERED: SODIUM BICARBONATE 8.4% PFS 50 MEQ/50 ML SYR IVP ONE (21:34)
[2020-04-25] MEDS: SODIUM BICARBONATE 8.4% 50 MEQ in NACL 0.45% 1,000 ML IV SCH (21:40)
--- NOTE | 2020-04-25 23:30 | NUR ---
PATIENT RESTING, TOLERATING NASAL CANNULA 12 LPM HUMIDIFIED OXYGEN WELL. SITTING UP AT APPROXIMATELY HOB 35 DEGREES. CONTINUING TO GET ACCUCHECKS AND RELEASE/REAPPLY RESTRAINTS Q1. WILL CONTINUE TO CLOSELY MONITOR AND FREQUENTLY ROUND.
[2020-04-26] VITALS (21 sets, daily range): BP systolic 116–162; BP diastolic 60–88
[2020-04-26] MEDS: BLOOD GLUCOSE MONITORING 1 DEV DEV FS SCH ×24 (00:01→23:29)
[2020-04-26 00:20] LABS: ANION GAP 27.4 (8-16); CARBON DIOXIDE 12.5 mmol/L (21-32); CHLORIDE 111 mmol/L (98-107); CREATININE 2.7 mg/dL (0.6-1.3); POTASSIUM 4.9 mmol/L (3.5-5.1); SODIUM SERUM 146 mmol/L (136-145)
[2020-04-26 00:22] LABS: GLUCOSE 498 mg/dL (74-106); UREA NITROGEN, BLOOD 98 mg/dL (7-18)
--- NOTE | 2020-04-26 01:00 | NUR ---
PATIENT SLEEPING, CONTINUES TO TOLERATE 12 LPM HUMIDIFIED OXYGEN WELL.CONTINUING TO ASSESS Q1 ACCUCHECKS AND RESTRAINT RELEASE AND REAPPLY. WILL CONTINUE TO CLOSELY MONITOR AND FREQUENTLY ROUND.
--- NOTE | 2020-04-26 03:00 | NUR ---
SPONGE BATH, HYGIENE, ORAL CARE/SUCTIONING, ACCUCHECKS Q1, RESTRAINTS RELEASE AND REAPPLY, SAFETY, LINENS CHANGED AND REPOSITIONING Q2/COMFORT CARE. PATIENT CONTINUES TO BE SINUS TACHYCARDIA ON THE MONITOR 105 BPM. RR BETWEEN 28-36. WILL CONTINUE TO MONITOR CLOSELY AND FREQUENTLY ROUND.
[2020-04-26] MEDS: DEXT 5% / NACL 0.45% 1,000 ML IV SCH (03:30)
[2020-04-26] MEDS: NACL 0.45% 1,000 ML IV SCH (04:25)
[2020-04-26] MEDS: INSULIN REGULAR, HUMAN 100 UNIT in NACL 0.9% 100 ML IV SCH ×4 (04:36→17:30)
--- NOTE | 2020-04-26 05:00 | NUR ---
PATIENT IN A POSITION OF COMFORT, HOB 40 DEGREES. TOLERATING NC AT 12 LPM HUMIDIFIED OXYGEN, SATURATING AT 93%. CONTINUING TO GATHER Q1 ACCUCHECKS AND Q1 RESTRAINT RELEASE AND REAPPLY. PMSC'S ARE POSITIVE AND INTACT. SINUS RHYTHM ON THE MONITOR AT 99 BPM. RR AT 26. KATHY LCONTINUE TO CLOSELY MONITOR AND FREQUENTLY ROUND.
[2020-04-26 06:28] LABS: BASOPHILS % (AUTO) 0.2 % (0.0-2.0); HEMATOCRIT 33.1 % (36-52); HEMOGLOBIN 10.5 g/dL (12.0-18.0); LYMPHOCYTES # (AUTO) 0.2 K/uL (2.0-11.5); LYMPHOCYTES % (AUTO) 1.3 % (20.5-51.1); MEAN CORPUSCULAR HEMOGLOBIN 26 pg (27-31); MEAN CORPUSCULAR HGB CONC 32 g/dL (33-37); MEAN CORPUSCULAR VOLUME 81.1 fL (80-94); MONOCYTES # (AUTO) 0.1 K/uL (0.8-1.0); NEUTROPHILS # (AUTO) 11.9 K/uL (1.8-7.7); NEUTROPHILS % (AUTO) 97.5 % (42.2-75.2); PLATELET COUNT (AUTO) 154 K/uL (140-450); RED BLOOD CELL COUNT(AUTO) 4.08 MIL/uL (4.20-6.10); RED CELL DISTRIBUTION WIDTH 16.3 % (11.6-13.7); WHITE BLOOD COUNT (AUTO) 12.3 K/uL (4.8-10.8)
[2020-04-26] MEDS ORDERED: SODIUM BICARBONATE 8.4% PFS 50 MEQ/50 ML SYR IVP ONE (06:41)
[2020-04-26] MEDS: SODIUM BICARBONATE 8.4% 50 MEQ in NACL 0.45% 1,000 ML IV SCH ×2 (06:56→17:29)
[2020-04-26 06:58] LABS: MAGNESIUM 3.1 mg/dL (1.8-2.4); PHOSPHORUS 5.4 mg/dL (2.5-4.9)
[2020-04-26 06:59] LABS: ANION GAP 32.3 (8-16); CARBON DIOXIDE 10.6 mmol/L (21-32); CHLORIDE 111 mmol/L (98-107); CREATININE 2.8 mg/dL (0.6-1.3); POTASSIUM 4.9 mmol/L (3.5-5.1); SODIUM SERUM 149 mmol/L (136-145)
[2020-04-26 07:04] LABS: GLUCOSE 518 mg/dL (74-106); UREA NITROGEN, BLOOD 98 mg/dL (7-18)
--- NOTE | 2020-04-26 07:23 | NUR ---
REPORT GIVEN AND CARE TRANSFERRED TO [facility].
--- NOTE | 2020-04-26 08:28 | NUR ---
rECEIVED PT FLOOR NEAR iv TUBING WET AND SEARCHED WHERE IS THE LEAKED.fIXED ALL TUBINGS INFUSING ivs TO THE PT AND FOUND OUT INSULIN DRIP WAS NOT INFUSING AND THE OTHER picc LINE PORT WAS CLOTTED AND TRIED TO FLUSH BUT UNABLE TO SO CHARGE NURSE WAS INFORMED. wILL TRY TO INSERT PERIPHERLA iv LAURENCE
[2020-04-26 08:52] LABS: ANION GAP 31.8 (8-16); CHLORIDE 112 mmol/L (98-107); CREATININE 2.8 mg/dL (0.6-1.3); POTASSIUM 4.8 mmol/L (3.5-5.1); SODIUM SERUM 149 mmol/L (136-145)
[2020-04-26] MEDS: ZINC SULF 220 MG CAP PO SCH ×2 (09:00→20:42)
[2020-04-26] MEDS: ASCORBIC ACID 500 MG TAB PO SCH (09:00)
[2020-04-26] MEDS: VITAMIN D 400 IU TAB PO SCH (09:00)
[2020-04-26] MEDS: AZITHROMYCIN 250 MG TAB PO SCH (09:00)
[2020-04-26] MEDS: ENOXAPARIN 30 MG/0.3 ML SYR SUBQ SCH (09:11)
--- NOTE | 2020-04-26 09:17 | NUR ---
AA VINAY PO MED NOT GIVEN TODAY BEC. PT. IS LETHARGIC AND CANT SWALLOW WELL THE PO MEDS WITH [facility]. WILL INFORM md TODAY EITHER DURING ROUNDS OR WILL CALL THEM
[2020-04-26 09:41] LABS: GLUCOSE 531 mg/dL (74-106)
[2020-04-26 09:42] LABS: UREA NITROGEN, BLOOD 100 mg/dL (7-18)
[2020-04-26] MEDS ORDERED: DEXAMETHASONE 4 MG/ML VIAL IVP SCH (11:57)
[2020-04-26] MEDS ORDERED: ALTEPLASE 2 MG VIAL MC SCH (12:00)
[2020-04-26] MEDS ORDERED: INSULIN REGULAR, HUMAN 100 UNIT/ML VIAL IVP SCH (13:00)
[2020-04-26 14:08] LABS: ANION GAP 24.6 (8-16); CARBON DIOXIDE 15.2 mmol/L (21-32); CHLORIDE 115 mmol/L (98-107); CREATININE 2.7 mg/dL (0.6-1.3); POTASSIUM 3.8 mmol/L (3.5-5.1); SODIUM SERUM 151 mmol/L (136-145)
[2020-04-26 14:26] LABS: GLUCOSE 464 mg/dL (74-106); UREA NITROGEN, BLOOD 99 mg/dL (7-18)
[2020-04-26 16:36] LABS: ANION GAP 22.1 (8-16); CARBON DIOXIDE 16.9 mmol/L (21-32); CHLORIDE 116 mmol/L (98-107); CREATININE 2.6 mg/dL (0.6-1.3); SODIUM SERUM 151 mmol/L (136-145)
[2020-04-26 16:38] LABS: GLUCOSE 468 mg/dL (74-106); UREA NITROGEN, BLOOD 97 mg/dL (7-18)
--- NOTE | 2020-04-26 19:10 | NUR ---
Received report from TREE Grossman RN. Patient on INsulin Drip w/ q1h Accucheck, 1/2NS +NaHco3 1amp @ 100ml/hr & 1/2 NS @Earl lugo.
[2020-04-26 20:42] LABS: ANION GAP 20.4 (8-16); CARBON DIOXIDE 17.9 mmol/L (21-32); CHLORIDE 120 mmol/L (98-107); CREATININE 2.6 mg/dL (0.6-1.3); GLUCOSE 295 mg/dL (74-106); POTASSIUM 3.3 mmol/L (3.5-5.1); SODIUM SERUM 155 mmol/L (136-145)
[2020-04-26] MEDS: FAMOTIDINE 20 MG/2 ML VIAL IV SCH (20:42)
[2020-04-26 20:49] LABS: UREA NITROGEN, BLOOD 95 mg/dL (7-18)
--- NOTE | 2020-04-26 23:38 | NUR ---
Tried calling MD power generation equipment repairer to Relay K+=3.3 Many....Many times Excluding the welder production line arc calls But MD knitting demonstrator NEVER draft roller picker the phone. welder production line arc aware.
[2020-04-27] VITALS (29 sets, daily range): BP systolic 102–167; BP diastolic 37–106
[2020-04-27] MEDS: BLOOD GLUCOSE MONITORING 1 DEV DEV FS SCH ×23 (00:10→23:19)
[2020-04-27 00:24] LABS: ANION GAP 18.3 (8-16); CARBON DIOXIDE 20.9 mmol/L (21-32); CHLORIDE 120 mmol/L (98-107); CREATININE 2.3 mg/dL (0.6-1.3); GLUCOSE 174 mg/dL (74-106); POTASSIUM 3.2 mmol/L (3.5-5.1)
[2020-04-27 00:28] LABS: SODIUM SERUM 156 mmol/L (136-145); UREA NITROGEN, BLOOD 90 mg/dL (7-18)
[2020-04-27] MEDS ORDERED: KCL 20 MEQ/WATER INJ PREMIX 200 ML IV SCH (00:35)
[2020-04-27] MEDS: INSULIN REGULAR, HUMAN 100 UNIT in NACL 0.9% 100 ML IV SCH ×4 (05:57→23:36)
[2020-04-27 06:03] LABS: BASOPHILS % (AUTO) 0.1 % (0.0-2.0); HEMATOCRIT 31.9 % (36-52); HEMOGLOBIN 10.7 g/dL (12.0-18.0); LYMPHOCYTES # (AUTO) 0.1 K/uL (2.0-11.5); LYMPHOCYTES % (AUTO) 1.2 % (20.5-51.1); MEAN CORPUSCULAR HEMOGLOBIN 26 pg (27-31); MEAN CORPUSCULAR HGB CONC 34 g/dL (33-37); MEAN CORPUSCULAR VOLUME 78.6 fL (80-94); MONOCYTES # (AUTO) 0.1 K/uL (0.8-1.0); MONOCYTES % (AUTO) 0.6 % (1.7-9.3); NEUTROPHILS # (AUTO) 9.1 K/uL (1.8-7.7); NEUTROPHILS % (AUTO) 98.1 % (42.2-75.2); PLATELET COUNT (AUTO) 144 K/uL (140-450); RED BLOOD CELL COUNT(AUTO) 4.06 MIL/uL (4.20-6.10); RED CELL DISTRIBUTION WIDTH 15.3 % (11.6-13.7); WHITE BLOOD COUNT (AUTO) 9.3 K/uL (4.8-10.8)
[2020-04-27 06:54] LABS: ANION GAP 18.3 (8-16); CARBON DIOXIDE 20.2 mmol/L (21-32); CHLORIDE 122 mmol/L (98-107); CREATININE 2.1 mg/dL (0.6-1.3); GLUCOSE 130 mg/dL (74-106); POTASSIUM 3.5 mmol/L (3.5-5.1)
[2020-04-27] MEDS ORDERED: KCL 20 MEQ/WATER INJ PREMIX 200 ML IV PRN (07:00)
[2020-04-27 07:13] LABS: SODIUM SERUM 157 mmol/L (136-145)
[2020-04-27 07:14] LABS: UREA NITROGEN, BLOOD 89 mg/dL (7-18)
--- NOTE | 2020-04-27 07:25 | NUR ---
RECEIVED REPORT FROM TRADE MARK ATTORNEY NURSE. PATIENT IS LYING ON BED COMFORTABLY WITH BOTH EYES CLOSED, OPENS EYES WITH LIGHT PAIN, LOCALIZES PAIN, DOES NOT FOLLOW COMMANDS, PILLOWS USED TO OFFLOAD PRESSURE. RESPIRATION EVEN, SHALLOW, AND UNLABORED ON WITH HUMIDIFIED O2 12L VIA NC, SPO2 92% AT THIS TIME. LUNGS SOUND COARSE UPON AUSCULTATION. IV ON CARMINE PICC, CLEAN AND INTACT, SKIN COLOW WNL,DRY WARM TO TOUCH, INTACT, LOW JUAN MIGUEL SCORE. ABDOMEN FLAT AND SOFT. PATRICIA IN PLACE, DRAINING WITH GRAVITY, RAMBO URINE IN BAG NOTED. ZOLL PADS ATTACHED AND ZOLL BY BEDSIDE. ENHANCED DROPLET PRECAUTION, FALL RISK PRECAUTION, ASPIRATION PRECAUTION IN PLACE. SAFETY MEASURES IN PLACE. BED IN LOW POSITION, HOB ELEVATED 35 DEGREE AND BED LOCKED, PLAN OF CARE REVIEWED.
[2020-04-27] MEDS: FAMOTIDINE 20 MG/2 ML VIAL IV SCH ×2 (08:06→20:13)
[2020-04-27] MEDS: VITAMIN D 400 IU TAB PO SCH (08:06)
[2020-04-27] MEDS: DEXAMETHASONE 4 MG/ML VIAL IVP SCH (08:06)
[2020-04-27] MEDS: ZINC SULF 220 MG CAP PO SCH ×2 (08:06→20:13)
[2020-04-27] MEDS: ASCORBIC ACID 500 MG TAB PO SCH (08:07)
[2020-04-27] MEDS: ENOXAPARIN 30 MG/0.3 ML SYR SUBQ SCH (08:07)
[2020-04-27] MEDS: AZITHROMYCIN 250 MG TAB PO SCH (08:07)
[2020-04-27] MEDS: OSELTAMIVIR PHOSPHATE 30 MG CAP PO SCH (08:08)
[2020-04-27] MEDS: SODIUM BICARBONATE 8.4% 50 MEQ in NACL 0.45% 1,000 ML IV SCH (08:40)
--- NOTE | 2020-04-27 08:41 | NUR ---
SCHEDULED IV AND SQ MEDS GIVEN, PT REFUSES TO TAKE ANY PO, UNABLE TO GIVE PO MEDS, WILL NOTIFY
--- NOTE | 2020-04-27 09:20 | NUR ---
DR AYALA AT BEDSIDE, NOTIFIED THAT UNABLE TO TAKE PO MEDS.
[2020-04-27 09:32] LABS: ANION GAP 15.7 (8-16); CARBON DIOXIDE 20.8 mmol/L (21-32); CHLORIDE 123 mmol/L (98-107); GLUCOSE 140 mg/dL (74-106); POTASSIUM 4.5 mmol/L (3.5-5.1); SODIUM SERUM 155 mmol/L (136-145)
[2020-04-27 09:37] LABS: UREA NITROGEN, BLOOD 84 mg/dL (7-18)
--- NOTE | 2020-04-27 09:55 | NUR ---
DR NAIDA KAYE AT BEDSIDE, LABS AND IVF REVIEWED, OK TO DC IVF WITH [facility]
--- NOTE | 2020-04-27 10:03 | NUR ---
04/27/20 RD FOLLOW UP COMPLETED. PLEASE REFER TO NUTRITION PROGRESS NOTE UNDER CARE ACTIVITY FOR ESTIMATED NUTRITION NEEDS. RD RECOMMENDATIONS: 1. CONTINUE NPO DIET 2. WHEN MEDICALLY CLEARED START NUTRITION SUPPORT TO MEET ESTIMATED NEEDS OF 2250KCALS & 90GM PROTEIN. 3. IF PT IS CLEARED FOR PO DIET, RECOMMEND 60GM CCHO RENAL PUREE NECTAR THICK PER SWALLOW EVAL RECOMMENDATIONS 4. IF PT CONTINUE TO BE UNABLE TO TOLERATE PO INTAKE, CONSIDER TF NEPRO @50MLS/HR (2160KCALS,97GM PROTEIN). START @30ML/HR AND ADVANCE TOLERATED. 5. RD TO FOLLOW-UP 2-3 DAYS, HIGH RISK JOEY ZIMMERMAN MBA, RD
--- NOTE | 2020-04-27 10:05 | NUR ---
DR KANG AT BEDSIDE, PT NOW OBTUNDED, DIFFICULT TO AROUSE, DESATURATED TO 66% WITH O2 12L NC , NON REBREATHER MASK PLACED, [id number] SLOW O RECOVER, 75% AT THIS TIME. DR KANG PLANS TO INTUBATE, RT CALLED TO BEDSIDE.
--- NOTE | 2020-04-27 10:24 | NUR ---
INTUBATED BY DR KANG AND FORREST RT AT THIS TIME WITH RSI MEDS, ETOMIDATE 10MG, ROCURONIUM 100MG, GOOD CHEST RISE AND FALL, CO2 DETECTOR TURNED GOLD, O2 SAT SLOWLY IMPROVED TO 99-100%, NGT PLACED TO LEFT NARE 14F, AWAITNG XRAY FOR CONFIRMTATION.
[2020-04-27] MEDS ORDERED: PROPOFOL 1000 MG/100 ML PREMIX 100 ML IV ONE (10:31)
[2020-04-27] MEDS ORDERED: fentaNYL citrate 1 MG in NACL 0.9% 80 ML IV PRN (10:55)
[2020-04-27] MEDS: PROPOFOL 1000 MG/100 ML PREMIX 100 ML IV PRN (11:13)
[2020-04-27] MEDS ORDERED: ASPIRIN 325 MG TAB PO ONE (11:15)
[2020-04-27] MEDS: NACL 0.45% 1,000 ML IV SCH (11:15)
[2020-04-27] MEDS: fentaNYL citrate - 50mL vial 2.5 MG in NACL 0.9% 200 ML IV PRN (11:40)
--- NOTE | 2020-04-27 11:40 | NUR ---
FENTANYL STARTED FOR SEDATION
--- NOTE | 2020-04-27 12:05 | NUR ---
REFUSED PO AM MEDS IN GIVEN VIA NGT AT THIS TIME.
[2020-04-27 12:09] LABS: ANION GAP 14.3 (8-16); CARBON DIOXIDE 22.7 mmol/L (21-32); CHLORIDE 122 mmol/L (98-107); CREATININE 1.9 mg/dL (0.6-1.3); GLUCOSE 158 mg/dL (74-106)
--- NOTE | 2020-04-27 12:35 | NUR ---
RETURNED FROM CT HEAD NON CONTRAST, PT REMAINED ON INFORMATICS SPECIALIST WITH RN AND RT AT BEDSIDE FOR AIRWAY MANAGEMENT, NO ADVERSE EVENTS DURING TRANSPORT.
[2020-04-27 12:52] LABS: SODIUM SERUM 156 mmol/L (136-145); UREA NITROGEN, BLOOD 79 mg/dL (7-18)
--- NOTE | 2020-04-27 13:00 | NUR ---
CT HEAD RESULT REPORTED TO DR KANG, NO NEW ORDERS
--- NOTE | 2020-04-27 15:01 | NUR ---
PT REMAINS STABLE, VITALS DOCUMENTED, NO DISTRESS NOTED, REMAINS RASS -3 WITH PROPOFOL AND FENTANYL DRIP
[2020-04-27 17:13] LABS: ANION GAP 13.3 (8-16); CARBON DIOXIDE 23.4 mmol/L (21-32); CHLORIDE 122 mmol/L (98-107); CREATININE 1.8 mg/dL (0.6-1.3); GLUCOSE 169 mg/dL (74-106); POTASSIUM 3.7 mmol/L (3.5-5.1); SODIUM SERUM 155 mmol/L (136-145)
[2020-04-27 17:15] LABS: UREA NITROGEN, BLOOD 79 mg/dL (7-18)
--- NOTE | 2020-04-27 18:49 | NUR ---
REPORTED CURRENT CONDITION TO DR AYALA, RECENT ANION GAPS AND BLOOD SUGAR REPORTED, OK TO CHECK GLUCOSE Q2H NOW.
[2020-04-27 20:26] LABS: ANION GAP 12.7 (8-16); CARBON DIOXIDE 21.7 mmol/L (21-32); CHLORIDE 123 mmol/L (98-107); CREATININE 1.8 mg/dL (0.6-1.3); GLUCOSE 166 mg/dL (74-106); POTASSIUM 4.4 mmol/L (3.5-5.1); SODIUM SERUM 153 mmol/L (136-145)
[2020-04-27 20:28] LABS: UREA NITROGEN, BLOOD 78 mg/dL (7-18)
[2020-04-27] MEDS ORDERED: BLOOD GLUCOSE MONITORING 1 DEV DEV FS SCH (21:00)
[2020-04-28] VITALS (30 sets, daily range): BP systolic 86–148; BP diastolic 44–96
[2020-04-28] MEDS: BLOOD GLUCOSE MONITORING 1 DEV DEV FS SCH ×6 (01:11→18:45)
[2020-04-28] MEDS: PROPOFOL 1000 MG/100 ML PREMIX 100 ML IV PRN ×3 (01:23→19:23)
--- NOTE | 2020-04-28 02:15 | NUR ---
PHONE CALL TO DR CORLEY; NOTIFIED 0200 BS 88; NO 12 MIDNIGHT BMP ORDERED; LAST ANION GAP 12.7; ORDERED STAT BMP, NO RESULT AT THIS TIME.NEW ORDERS RECEIVED, TO DC INSULIN DRIP, START INSULIN SLIDING AND ACCU CHECK Q 6HRS.ALSO TO START NGT FEEDING
[2020-04-28 02:34] LABS: ANION GAP 14.7 (8-16); CARBON DIOXIDE 23.3 mmol/L (21-32); CHLORIDE 122 mmol/L (98-107); CREATININE 1.8 mg/dL (0.6-1.3); GLUCOSE 109 mg/dL (74-106)
[2020-04-28 02:36] LABS: SODIUM SERUM 156 mmol/L (136-145); UREA NITROGEN, BLOOD 76 mg/dL (7-18)
[2020-04-28] MEDS: INSULIN LISPRO SLIDING SCALE 100 UNITS/ML VIAL SUBQ PRN ×3 (05:43→18:45)
[2020-04-28] MEDS: NACL 0.45% 1,000 ML IV SCH ×3 (05:57→15:47)
[2020-04-28 06:17] LABS: BASOPHILS % (AUTO) 0.6 % (0.0-2.0); HEMATOCRIT 30.8 % (36-52); LYMPHOCYTES # (AUTO) 0.2 K/uL (2.0-11.5); LYMPHOCYTES % (AUTO) 2.6 % (20.5-51.1); MEAN CORPUSCULAR HEMOGLOBIN 26 pg (27-31); MEAN CORPUSCULAR HGB CONC 32 g/dL (33-37); MEAN CORPUSCULAR VOLUME 79.7 fL (80-94); MONOCYTES # (AUTO) 0.1 K/uL (0.8-1.0); MONOCYTES % (AUTO) 1.8 % (1.7-9.3); NEUTROPHILS # (AUTO) 5.5 K/uL (1.8-7.7); PLATELET COUNT (AUTO) 92 K/uL (140-450); RED BLOOD CELL COUNT(AUTO) 3.86 MIL/uL (4.20-6.10); WHITE BLOOD COUNT (AUTO) 5.8 K/uL (4.8-10.8)
[2020-04-28 06:25] LABS: MAGNESIUM 2.9 mg/dL (1.8-2.4); PHOSPHORUS 3.2 mg/dL (2.5-4.9)
--- NOTE | 2020-04-28 07:40 | NUR ---
RECEIVED WINDOW SIDE REPORT FROM CAMERA REPAIRER NURSE. PATIENT IN BED, SUPINE, HOB 30 DEGREES. SEDATED, RESPONDS TO LIGHT PAIN, ETT TO VENT: ACVC FIO2 50%, RR 24, PEEP 5, BREATHING EVEN AND UNLABORED, NO SIGNS OF ACUTE DISTRESS NOTED. NG TUBE IN PLACE, FEEDING NOT RUNNING. PATRICIA IN PLACE, DRAINING TO GRAVITY. CARMINE PICC, CLEAN DRY INTACT. INFUSIN.45% NS @ 100 ML/HR, PROPOFOL @ 5 MCG/KG/MIN, FENTANYL @ 0.5 MCG/KG/HR. ENVIRONMENTAL ENGINEERING MANAGER IN PLACE. SAFETY MEASURES IN PLACE.
[2020-04-28] MEDS: DEXAMETHASONE 4 MG/ML VIAL IVP SCH (08:17)
[2020-04-28] MEDS: ECOTRIN 81 MG TABEC PO SCH (08:18)
[2020-04-28] MEDS: VITAMIN D 400 IU TAB PO SCH (08:19)
[2020-04-28] MEDS: ASCORBIC ACID 500 MG TAB PO SCH (08:19)
[2020-04-28] MEDS: ZINC SULF 220 MG CAP PO SCH ×2 (08:20→22:04)
[2020-04-28] MEDS: AZITHROMYCIN 250 MG TAB PO SCH (08:20)
[2020-04-28] MEDS: FAMOTIDINE 20 MG/2 ML VIAL IV SCH ×2 (08:23→21:34)
--- NOTE | 2020-04-28 08:30 | NUR ---
ADMINISTERED SCHEDULED MEDS PER MD ORDER. MED EDUCATION PROVIDED, REINFORCEMENT NEEDED. G TUBE RESIDUAL 0 ML, FLUSHED BEFORE AND AFTER MEDS. MORNING HYGIENE PROVIDED: ORAL CARE, CATHETER CARE, CHG BATH, CHANGED ALL DIRTY LINEN. PATIENT REPOSITIONED AND OFFLOADED PRESSURE WITH PILLOWS. ACTIVITY TOLERATED WELL, NO SIGNS OF ACUTE DISTRESS NOTED. CASEWORK MANAGER IN PLACE. SAFETY MEASURES IN PLACE.
[2020-04-28] MEDS ORDERED: ASPIRIN 325 MG TABEC PO SCH (09:00)
[2020-04-28] MEDS ORDERED: INSULIN LANTUS 100 UNITS/ML 10 ML VIAL SUBQ ONE (11:20)
[2020-04-28] MEDS ORDERED: INSULIN LANTUS 100 UNITS/ML 10 ML VIAL SUBQ SCH ×2 (11:22→21:00)
--- NOTE | 2020-04-28 12:25 | NUR ---
DISCHARGE PLANNING: THIS IS AN 85 Y/O MALE PATIENT BIBA FROM [facility] [place] DUE TO SOB. PAST MEDICAL HISTORY INCLUDE CKD, DM, HTN, COVID 19. INITIAL DIAGNOSIS OF SEPSIS, COVID, SEVERE HYPERGLYCEMIA. CURRENT LABS INCLUDE WBC 5.8, H/H 10.0, NA/K 156/4.0, BUN/CREA 76/1.8, ANION GAP 14.7. COVID POSITIVE. ORALLY INTUBATED TO VENT, FIO2 50%, PEEP 5, O2 SAT 96%. ON DECADRON, TAMIFLU, ROCEPHIN. ID, PULMO AND NEPHRO CONSULTS IN PLACE. DC PLAN PENDING ON PATIENT'S RESPONSE TO TREATMENT. Addendum: 04/29/20 at 1133 by Kendal De La Cruz CM PER DR. CORLEY, PATIENT IS NOT STABLE TO TRANSFER YET TO A CONTRACTED FACILITY DUE TO FIO2 IS STILL HIGH 100%. CONTACTED [facility] AT [phone], ABLE TO SPEAK TO RACQUEL GRANADOS. PER RACQUEL, THEY ARE AUTHORIZING THE STAY UNTIL DISCHARGE AND NOT TRANSFERRING ANY PATIENTS AT THIS TIME. Addendum: 04/30/20 at 1111 by Kendal De La Cruz CM REMAINS INTUBATED, SEDATED. DISCUSSED AT [facility] TODAY, DR. CORLEY WILL FOLLOW UP WITH FAMILY REGARDING CODE STATUS.
--- NOTE | 2020-04-28 16:00 | NUR ---
PER DR DEL REAL, PER ABG VALUES TODAY: pH 7.324, pCO2 34.0, pO2 55.9, HCO3 17.3. MD AWARE, PER MD CONTINUE CURRENT TREATMENT AND VENTILATOR SETTINGS. WILL CONTINUE TO MONITOR CLOSELY.
--- NOTE | 2020-04-28 16:17 | NUR ---
PT. WITH LOW JUAN MIGUEL SCALE AT HIGH RISK, CONTINUE TO FOLLOW PRESSURE INJURY PREVENTION INTERVENTIONS. -TURN AND REPOSITION PATIENT Q 2H -ASSESS AND MONITOR SKIN CONDITION DURING POSITION CHANGE -OFFLOAD BILATERAL HEELS BY PLACING PILLOWS UNDER CALVES AT ALL TIMES, UNLESS OTHERWISE CONTRAINDICATED -PRESSURE REDISTRIBUTION BY PLACING PILLOWS AND OFFLOADING SACRALCOCCYX -KEEP SKIN CLEAN AND DRY AT ALL TIMES.
--- NOTE | 2020-04-28 19:24 | NUR ---
ENDORSED PATIENT TO PATCH MACHINE OPERATOR NURSE FOR CONTINUITY OF CARE. PATIENT STABLE AT THIS TIME.
--- NOTE | 2020-04-28 19:30 | NUR ---
RECEIVED REPORT FROM ALEXIS ,PATIENT IS ORALLY VENTED ON AC MODE RATE OF 24 0N 605 FIO2, SATURATING 95%,PATIENT IS ON PROPOFOL AT 12 MCG/KG/MIN,AND FENTANYL AT 0.5 MCH/KG/HR.INFUSING THRU HIS RIGHT UPPER ARM PICC LINE.PATIENT IS IN SINUS RYTHM. PATIENT HAD LARGE LIQUID BOWEL MOVEMENT ,PERIANAL CARE FLEXISEAL APPLIED AND COMPLETE LINWENS CHANGE.PATIENT KEPT HEAD OF BED ELKEVATED.
--- NOTE | 2020-04-28 21:33 | NUR ---
PATIENT ACCUCHECK IS 345MG/DL PATIENT RECEIVED HIS LANTUS INSULIN AT 10 UNITS SQ.
--- NOTE | 2020-04-28 23:00 | NUR ---
PATIENT HAVING EPISODE OF DESATURATION WITH DROPPING OF BLOOD PRESSURE.FIO2 INCREASED TO 100%,AND NOREPINEPHRINE STARTED TO SUPPORT B/P. REPOSITIONED PATIENT TO SUPPORT O2 SATURATION PATIENT POSITION WITH HIS HEAD UP.
[2020-04-29] VITALS (32 sets, daily range): BP systolic 59–149; BP diastolic 38–66
--- NOTE | 2020-04-29 | NUR ---
BLOOD SUGAR IS 345 COVERED WIT 8 UNITS OF HUMULOG SQ
[2020-04-29] MEDS ORDERED: NOREPINEPHRINE 4 MG/4 ML VIAL IV ONE ×2 (00:01→03:59)
[2020-04-29] MEDS: BLOOD GLUCOSE MONITORING 1 DEV DEV FS SCH ×4 (00:43→18:40)
[2020-04-29] MEDS: NOREPINEPHRINE 4 MG in DEXTROSE 5% 250 ML IV PRN ×2 (00:53→09:53)
[2020-04-29] MEDS: INSULIN LISPRO SLIDING SCALE 100 UNITS/ML VIAL SUBQ PRN ×4 (01:04→18:40)
[2020-04-29] MEDS: fentaNYL citrate - 50mL vial 2.5 MG in NACL 0.9% 200 ML IV PRN (05:01)
[2020-04-29 05:57] LABS: CARBON DIOXIDE 19.3 mmol/L (21-32); CHLORIDE 115 mmol/L (98-107); CREATININE 2.3 mg/dL (0.6-1.3); GLUCOSE 353 mg/dL (74-106); POTASSIUM 4.3 mmol/L (3.5-5.1); SODIUM SERUM 148 mmol/L (136-145)
[2020-04-29 06:20] LABS: EOSINOPHILS % (AUTO) 0.1 % (0.0-4.0); HEMATOCRIT 33.6 % (36-52); HEMOGLOBIN 10.4 g/dL (12.0-18.0); LYMPHOCYTES # (AUTO) 0.1 K/uL (2.0-11.5); LYMPHOCYTES % (AUTO) 2.5 % (20.5-51.1); MEAN CORPUSCULAR HEMOGLOBIN 25 pg (27-31); MEAN CORPUSCULAR HGB CONC 31 g/dL (33-37); MEAN CORPUSCULAR VOLUME 81.7 fL (80-94); MONOCYTES % (AUTO) 1.6 % (1.7-9.3); NEUTROPHILS # (AUTO) 2.6 K/uL (1.8-7.7); NEUTROPHILS % (AUTO) 95.8 % (42.2-75.2); PLATELET COUNT (AUTO) 66 K/uL (140-450); RED BLOOD CELL COUNT(AUTO) 4.12 MIL/uL (4.20-6.10); RED CELL DISTRIBUTION WIDTH 16.5 % (11.6-13.7); WHITE BLOOD COUNT (AUTO) 2.7 K/uL (4.8-10.8)
[2020-04-29 06:25] LABS: UREA NITROGEN, BLOOD 95 mg/dL (7-18)
[2020-04-29] MEDS: PROPOFOL 1000 MG/100 ML PREMIX 100 ML IV PRN ×2 (07:02→18:25)
--- NOTE | 2020-04-29 07:20 | NUR ---
RECEIVED WINDOW SIDE REPORT FROM EXPORT DOCUMENTS CLERK NURSE. PATIENT IN BED, SUPINE, HOB 30 DEGREES. SEDATED, RESPONDS TO LIGHT PAIN, ETT TO VENT: ACVC FIO2 100%, RR 24, PEEP 8, BREATHING EVEN AND UNLABORED, NO SIGNS OF ACUTE DISTRESS NOTED. OG TUBE IN PLACE, FEEDING NOT RUNNING. PATRICIA IN PLACE, RECTAL TUBE IN PLACE, DRAINING TO GRAVITY. CARMINE PICC, CLEAN DRY INTACT. INFUSIN.45% NS @ 125ML/HR, PROPOFOL @ 15 MCG/KG/MIN, FENTANYL @ 0.5 MCG/KG/HR, LEVOPHED @ 15 MCG/MIN. SHOPFITTER IN PLACE. SAFETY MEASURES IN PLACE.
[2020-04-29] MEDS: NACL 0.45% 1,000 ML IV SCH ×3 (07:37→23:37)
[2020-04-29] MEDS: FAMOTIDINE 20 MG/2 ML VIAL IV SCH ×2 (09:24→21:09)
[2020-04-29] MEDS: ECOTRIN 81 MG TABEC PO SCH (09:25)
[2020-04-29] MEDS: DEXAMETHASONE 4 MG/ML VIAL IVP SCH (09:25)
[2020-04-29] MEDS: VITAMIN D 400 IU TAB PO SCH (09:26)
[2020-04-29] MEDS: ASCORBIC ACID 500 MG TAB PO SCH (09:27)
[2020-04-29] MEDS: ZINC SULF 220 MG CAP PO SCH ×2 (09:27→21:10)
--- NOTE | 2020-04-29 09:30 | NUR ---
ADMINISTERED SCHEDULED MEDS PER MD ORDER. MED EDUCATION PROVIDED, REINFORCEMENT NEEDED. HEPARIN HELD PER PLATELETS, 66. G TUBE RESIDUAL 0 ML, FLUSHED BEFORE AND AFTER MEDS. MORNING HYGIENE PROVIDED: ORAL CARE, CATHETER CARE, CHG BATH, CHANGED ALL DIRTY LINEN. PATIENT REPOSITIONED AND OFFLOADED PRESSURE WITH PILLOWS. CLOCKMAKER IN PLACE, SAFETY MEASURES IN PLACE.
[2020-04-29] MEDS: INSULIN LANTUS 100 UNITS/ML 10 ML VIAL SUBQ SCH ×2 (09:32→21:21)
[2020-04-29] MEDS ORDERED: VASOPRESSIN 20 UNITS in NACL 0.9% 250 ML IV SCH (11:20)
[2020-04-29] MEDS: NOREPINEPHRINE 8 MG in DEXTROSE 5% 250 ML IV PRN ×3 (13:11→18:38)
--- NOTE | 2020-04-29 16:26 | NUR ---
RD RECOMMENDATIONS: GLUCERNA 1.2 BOLUS 1560 ML/DAY (EQUIVALENT TO 65 ML/HR). CONTINUE FREE WATER FLUSH 100 ML Q6H. -THIS WILL PROVIDE 1255 ML OF WATER, 1872 KCAL AND 93 GM OF PROTEIN. MEETING ADEQUATE NEEDS ABOVE 90% OF KCAL AND PROTEIN NEEDS.
[2020-04-29] MEDS: ACETAMINOPHEN 325 MG TAB PO PRN (17:08)
--- NOTE | 2020-04-29 17:12 | NUR ---
PATIENT TEMP 100.5, GHASSAN HUGGER REMOVED, ACETAMINOPHEN ADMINISTERED PER MD ORDER. COOLING MEASURES IN PLACE. WILL MONITOR CLOSELY.
--- NOTE | 2020-04-29 18:25 | NUR ---
PATIENT TEMPERATURE 99.1 DEGREES FAHRENHEIT. GHASSAN PAINTING KEPT OFF PATIENT. WILL CONTINUE TO MONITOR CLOSELY AND ENDORSE TO SERVICE SHOP FOREMAN NURSE.
--- NOTE | 2020-04-29 19:13 | NUR ---
PATIENT ENDORSED TO TRAFFIC CONTROL FLAGGER NURSE FOR CONTINUITY OF CARE. PATIENT STABLE AT THIS TIME.
--- NOTE | 2020-04-29 19:30 | NUR ---
RECEIVED REPORT FROM ALEXIS PATIENT IS ORALLY VENTED ON AC MODE RATE OF 24 WITH 1005 FIO2 PATIENT IS SEDATED WITH PROPOFOL,FENTANYL PATIENT BLOOD PRESSURE IS SUPPORTED BY LEVOPHED.PATIENT IVF ARE INFUSING THRU HIS RIGHT UPPER ARM PICC LINECHEST EXPANSION EQUAL BILATERALLY,PATIENT IS SATURATING 91-93% ON [id number].
--- NOTE | 2020-04-29 19:52 | NUR ---
RECEIVED PATIENT FROM AM SHIFT. PATIENT WAS SEEN AND ASSESSED. FOUND PT IN SUPINE POSITION. PATIENT IS INTUBATED WITH ETT SIZE 8.0 AND SECURED WITH BITTING BLOCK ANCHOR-FAST AT 26cm. PATIENT IS ON VENT SETTINGS: AC/VC RR 24, VT 340, PEEP 8, FiO2 100% WITH SPO2 OF 92%. NOTICED ADEQUATE CHEST RISE AND FALL. AMBU BAG AT BEDSIDE. VENT IS PLUGGED IN RED OUTLET. ALARMS SET AND AUDIBLE TO ENVIRONMENT. SUCTIONED SCANT AMOUNT OF CLEAR/WHITE THIN SECRETIONS FROM ETT. ORAL CARE DONE. SUCTIONED CLEAR WHITE THIN SECRETIONS ORALLY. AIRWAY IS PATENT. AUSCULTATION REVEALS BILATERAL RALES BREATH SOUNDS ON THE BASES AND CLEAR/ DIMINISHED ON THE UPPER LOBES. PATIENT IS IN NO APPARENT RESPIRATORY DISTRESS AT THIS TIME. WILL CONTINUE TO MONITOR PATIENT.
--- NOTE | 2020-04-29 21:00 | NUR ---
FEEDING IS GIVEN WITH GLUCERNA
[2020-04-30] VITALS (21 sets, daily range): BP systolic 64–176; BP diastolic 33–84
[2020-04-30] MEDS: BLOOD GLUCOSE MONITORING 1 DEV DEV FS SCH ×2 (00:34→06:35)
[2020-04-30] MEDS: INSULIN LISPRO SLIDING SCALE 100 UNITS/ML VIAL SUBQ PRN ×2 (00:43→06:40)
[2020-04-30] MEDS: NOREPINEPHRINE 8 MG in DEXTROSE 5% 250 ML IV PRN ×2 (01:11→03:53)
[2020-04-30] MEDS ORDERED: VASOPRESSIN 20 UNITS/ML VIAL ONE (02:27)
[2020-04-30 06:17] LABS: ANION GAP 24.3 (8-16); CARBON DIOXIDE 14.3 mmol/L (21-32); CHLORIDE 105 mmol/L (98-107); SODIUM SERUM 136 mmol/L (136-145)
[2020-04-30 06:36] LABS: POTASSIUM 7.6 mmol/L (3.5-5.1)
[2020-04-30 06:37] LABS: CREATININE 4.8 mg/dL (0.6-1.3); GLUCOSE 421 mg/dL (74-106); UREA NITROGEN, BLOOD 111 mg/dL (7-18)
--- NOTE | 2020-04-30 06:38 | NUR ---
PHONE CALL TO DR HOLMAN,CIVIL DIVISION COMMANDER DEPUTY SHERIFF REGARDING CRITICAL LAB RESULT K 7.6; [id number] CREATININE 4.8 GLUCOSE 421; AWAITING REPLY
--- NOTE | 2020-04-30 06:55 | NUR ---
PHONE CALL TO DR HOLMAN AGAIN FOR CRITICAL LAB, AWAITING REPLY.
--- NOTE | 2020-04-30 07:10 | NUR ---
ENDORSED TO PALMA MATSON,CHARGE NURSE FOR THE CRITICAL RESULT, AWAITING CALL BACK FROM DR HOLMAN
--- NOTE | 2020-04-30 07:20 | NUR ---
RECEIVED REPORT FROM BUILDING SERVICES TECHNICIAN RN FOR CONTINUITY OF CARE, RASS -3, FLACC 0, ETT TO VENT, AC/VS FIO2 100 RATE 24, PEEP 8, SINUS TACH ON THE MONITOR, DRY WEIGHT 90 KG. CARMINE INTACT INFUSING LEVO AT 30MCG/MIN, VASOPRESSIN AT 0.04 UNITS/MIN, PROPOFOL AT 12MCG/KG/MIN, FENTANYL AT 0.5 MCG/KG/HR, I/2 NS AT 125 ML/HR, PATRICIA CATH IN PLACE, WITH YELLOW URINE IN BAG, RECTAL TUBE IN PLACE, BROWN SOFT STOOL IN BAG, INTERNATIONAL TRADE SPECIALIST, PULSE OXIMETER, AND SAFETY MEASURES IN PLACE, BED IN LOW POSITION, WILL CONTINUE TO MONITOR.
[2020-04-30] MEDS ORDERED: DEXTROSE 50% 50 ML SYR IVP ONE (07:35)
[2020-04-30] MEDS ORDERED: INSULIN REGULAR, HUMAN 100 UNIT/ML VIAL IVP ONE (07:35)
[2020-04-30] MEDS ORDERED: CALCIUM CHLORIDE 10% 100 MG/ML SYR IVP ONE ×2 (07:35→09:02)
--- NOTE | 2020-04-30 07:47 | NUR ---
BP IN MID 80S, LEVOPHED AT 30MCG/MIN AND VASOPRESSIN AT 0.4 UNITS/MIN, DR. GT WILL, WAITING FOR CALL BACK. WILL CONTINUE TO MONITOR.
--- NOTE | 2020-04-30 07:49 | NUR ---
DR GUAJARDO IN ICU, NOTIFIED OF NEW CONSULT FOR HD CATH. MADE AWARE OF NEED FOR DIALYSIS TODAY, DR GUAJARDO WILL RETURN LATER TODAY FOR HD CATH PLACEMENT.
[2020-04-30] MEDS ORDERED: NOREPINEPHRINE 16 MG in DEXTROSE 5% 250 ML IV PRN (08:00)
--- NOTE | 2020-04-30 08:31 | NUR ---
OBTAINED TELEPHONE CONSENT WITH DIGITAL PRODUCTION MANAGER DANO FOR HD CATH PLACEMENT FROM HEMA JACOB, ANSWERED ALL HIS QUESTIONS, SPENCER WAS AWARE AND AGREED TO PROCEDURE.
--- NOTE | 2020-04-30 08:35 | NUR ---
NEPHTOÑO JACOB WANTS DOCTOR TO CALL HIM BACK TO DISCUSS PLAN OF CARE, CONDITION AND PROGNOSIS, PHONE NUMBER VIRIFIED, WILL NOTIFY .
[2020-04-30] MEDS ORDERED: NACL 0.9% 1,000 ML IV SCH (08:45)
--- NOTE | 2020-04-30 08:52 | NUR ---
DR CORLEY NOTIFIED OF REQUEST BY DR DEL REAL TO GET CARDIOLOGY CONSULT, ALSO NOTIFIED OF REQUEST BY HEMA AJ TO CALL HIM BACK TO DISCUSS PLAN OF CARE, CONDITION AND PROGNOSIS, PHONE NUMBER PROVIDED.
--- NOTE | 2020-04-30 08:55 | NUR ---
HD CATH PLACED BY DR GUAJARDO TO RIGHT FEMORAL.
[2020-04-30] MEDS: DEXAMETHASONE 4 MG/ML VIAL IVP SCH (09:00)
[2020-04-30] MEDS: FAMOTIDINE 20 MG/2 ML VIAL IV SCH (09:00)
[2020-04-30] MEDS: ASCORBIC ACID 500 MG TAB PO SCH (09:00)
[2020-04-30] MEDS: ZINC SULF 220 MG CAP PO SCH (09:00)
[2020-04-30] MEDS: INSULIN LANTUS 100 UNITS/ML 10 ML VIAL SUBQ SCH (09:00)
[2020-04-30] MEDS: ECOTRIN 81 MG TABEC PO SCH (09:00)
[2020-04-30] MEDS: VITAMIN D 400 IU TAB PO SCH (09:00)
--- NOTE | 2020-04-30 09:45 | NUR ---
ABG RESULTS GIVEN TO MD DEL REAL, MANAGER HEAVY EQUIPMENT RECEIVED ORDERS, RN AWARE, WILL CONTINUE TO MONITOR.
--- NOTE | 2020-04-30 09:45 | NUR ---
DR EL PAGED AND CALLED BACK, NOTIFIED OF PT'S HR 40, BP 89/60, O2SAT 76%, MAX DOSE OF LEVOPHED AND VASOPRESSIN, ORDER FOR 500ML BOLUS AND DOPAMIN DRIP RECIEVED.
[2020-04-30] MEDS ORDERED: SODIUM BICARBONATE 8.4% PFS 50 MEQ/50 ML SYR IVP ONE (09:49)
--- NOTE | 2020-04-30 09:51 | NUR ---
ABG RESULT REPORTED TO DR DEL REAL BY RT SAUNDERS, ORDER FOR 2 AMPS OF BICARB AND IVF CHANGE.
[2020-04-30] MEDS ORDERED: DOPamine 400 MG/D5W PREMIX 250 ML IV PRN (09:55)
[2020-04-30] MEDS ORDERED: NACL 0.9% 500 ML IV SCH (09:55)
[2020-04-30] MEDS ORDERED: SODIUM BICARBONATE 8.4% 150 MEQ in DEXTROSE 5% 1,000 ML IV SCH (10:00)
--- NOTE | 2020-04-30 10:00 | NUR ---
ADMINISTERED TO AMPS OF BICARB PER DR. DEL REAL ORDER, WILL CONTINUE TO MONITOR.
[2020-04-30 10:18] LABS: MEAN CORPUSCULAR HEMOGLOBIN 26 pg (27-31)
--- NOTE | 2020-04-30 10:20 | NUR ---
CHECKED FEEDING TUBE RESIDUAL, 10 CC, ADMINISTERED SCHEDULED AM MEDS, ORAL CARE, HYGIENE CARE, PATRICIA CARE, AND CHG BATH PROVIDED. DRY DIP WORKER, PULSE OXIMETER, AND SAFETY MEASURES IN PLACE,WILL CONTINUE TO MONITOR.
[2020-04-30 10:30] LABS: WHITE BLOOD COUNT (AUTO) 5.3 K/uL (4.8-10.8)
--- NOTE | 2020-04-30 10:30 | NUR ---
INCREASED PEEP TO 10, WILL CONTINUE TO MONITOR, RN AWARE
--- NOTE | 2020-04-30 10:30 | NUR ---
DR. JORY SANDERSON, UPDATED ON PATIENT STATUS, STATED WILL TALK TO FAMILY.
[2020-04-30 10:31] LABS: HEMATOCRIT 34.2 % (36-52); HEMOGLOBIN 10.1 g/dL (12.0-18.0); MEAN CORPUSCULAR HGB CONC 30 g/dL (33-37); MEAN CORPUSCULAR VOLUME 86.4 fL (80-94); RED BLOOD CELL COUNT(AUTO) 3.96 MIL/uL (4.20-6.10); RED CELL DISTRIBUTION WIDTH 18.4 % (11.6-13.7)
--- NOTE | 2020-04-30 10:32 | NUR ---
RECEIVED CRITICAL LAB, DR. JORY WILL, WAITING FOR ORDERS.
[2020-04-30 10:33] LABS: PLATELET COUNT (AUTO) 23 K/uL (140-450)
[2020-04-30 10:41] LABS: MONOCYTES % (MANUAL) 3 % (5-12)
[2020-04-30 10:44] LABS: METAMYELOCYTES % 2 % (0-0); MYELOCYTES % 2 % (0-0)
[2020-04-30 11:08] LABS: EOSINOPHILS % (MANUAL) 2 % (0-4)
[2020-04-30 11:09] LABS: LYMPHOCYTES % (MANUAL) 12 % (20-46)
--- NOTE | 2020-04-30 11:22 | NUR ---
PT BRADYCARIC IN 40-30, BP UNDETECTED ON MONITOR, NO PALPABLE PULSE, CPR STARTED, CODE BLUE CALLED.
--- NOTE | 2020-04-30 11:26 | NUR ---
PATIENT'S NEPHEW SPENCER AND NIECE APLMA, NOTIFIED PATIENT IS CODING. BOTH AWARE, SPENCER SAID HE WANTS FULL TREATMENT.
--- NOTE | 2020-04-30 11:28 | NUR ---
RECEIVED A CALL BACK FROM PALMA AND SPENCER, BOTH REQUEST TO STOP CPR, DR HERNANDEZ SPOKE TO PALMA AND SPENCER, BOTH REQUEST TO STOP CPR AND CHANGE CODE STATUS TO DNR. CPR STOP PER REQUESTED.
--- NOTE | 2020-04-30 11:31 | NUR ---
ROSC, PT PLACED BACK ON VENT AND MEDICATION PER PREVIOUS ORDER, DR HERNANDEZ AT BEDSIDE.
--- NOTE | 2020-04-30 11:34 | NUR ---
RESPOND TO CODE BLUE, ACLS PROCEDURES, ROSC, PT PLACED BACK ON CURRENT VENTILATOR SETTINGS.
--- NOTE | 2020-04-30 11:35 | NUR ---
DR JORY WILL, AWAITING FOR CALL BACK.
--- NOTE | 2020-04-30 11:36 | NUR ---
COMFORT CARE, MORPHINE PRN PER DR HERNANDEZ WHO SPOKE WITH SPENCER JACOB ON THE PHONE DURING AND AFTER CODE BLUE. ALL DRIPS STOPPED, MORPHINE GIVEN FOR COMFORT
[2020-04-30] MEDS ORDERED: MORPHINE SULFATE 4 MG/ML SYR ONE (11:37)
--- NOTE | 2020-04-30 11:45 | NUR ---
PT PRONOUNCED AT THIS TIME BY DR HERNANDEZ.
--- NOTE | 2020-04-30 11:50 | NUR ---
PT'S NEPHEW MADAI JACOB NOTIFIED OF PT'S , POST MORTEM CARE AND PROCEDURE REVIEWED, MORTUARY IS [facility] IN [place]AY ([phone]), OK TO RELEASE REMAINS TO [facility] ONCE CLEARED BY TRAFFIC ANALYST PER MADAI, HE WILL COME UNEMPLOYMENT EXAMINER PERSONAL BELONGINGS LATER TODAY
--- NOTE | 2020-04-30 12:03 | NUR ---
DR CORLEY NOTIFIED OF PT'S
--- NOTE | 2020-04-30 13:20 | NUR ---
DR. MANDA SANDERSON, NOTIFIED OF PATIENT'S .
--- NOTE | 2020-04-30 14:00 | NUR ---
GAVE PERSONAL BELONGING TO PATIENT'S NEWPHEW, MC JACOB, INCLUDED CELL PHONE, DEAD MAIL CHECKER, BOX OF MASK, AND DENTURE CASE, AND YELLOW ENVELOPE.
--- NOTE | 2020-04-30 14:25 | NUR ---
[facility] - NOT CANDIDATE FOR ORGAN DONATION PER LETY, REF#[id number]
--- NOTE | 2020-04-30 14:39 | NUR ---
RECEIVED A CALL FROM [facility] AND SPOKE TO MIKE Reddy DUE TO PRIMARY PALMA MURRAY IS ON LUNCH BREAK. PROVIDED ALL REQUEST INFORMATION. [facility] MIKE[facility] CASE #[id number]. WILL NOTIFY PRIMARY PALMA MURRAY SHORTLY.
--- NOTE | 2020-04-30 15:55 | NUR ---
CALLED SUPPLY CHAIN INTERN'S OFFICE AGAIN, SUPPLY CHAIN INTERN'S OFFICE STATED THAT WAITING FOR SUPPLY CHAIN INTERN DEPUTY AND THAT PATIENT IS FIRST ON LIST, AWAITING PHONE CALL.
--- NOTE | 2020-04-30 16:41 | NUR ---
POSTMORTEM CARE PROVIDED, PATIENT CLEANED AND DOUBLE BAGGED, SENIOR MAJOR GIFTS OFFICER AND PULSE OXIMETER DISCONNECTED, ALL TUBES, ID BANDS, IVS REMOVED, ID TAG PLACED ON TO AND OUTSIDE OF BAG. AWAITING CALL FROM SPOOLER OPERATOR AUTOMATIC.
--- NOTE | 2020-04-30 16:54 | NUR ---
DIETITIAN CHIEF'S OFFICE CALLED, DEPUTY HERNÁNDEZ STATED NO DIETITIAN CHIEF'S CASE, BODY RELEASED.
--- NOTE | 2020-04-30 17:05 | NUR ---
PATIENT'S BODY TAKEN TO [facility].
[2020-05-01 08:07] LABS: HEPATITIS A ANTIBODY IGM Negative (Negative); HEPATITIS B CORE AB TOTAL Negative (Negative); HEPATITIS B SURFACE ANTIBODY Non Reactive (.)
== END 2020-04-30 11:45 | DRG 871 ==
LOC: MED 17:41 → EDSEX 17:41 → MTU 23:18 → MIC 04-23 09:40 → MTU 04-24 10:43 → MIC 04-24 10:44
PROVIDERS: ADMIT Family Medicine; ATTEND Family Medicine
PROC: XW13325 Transfusion of Convalescent Plasma (Nonautologous) into Peripheral Vein, Percutaneous Approach, New Technology Group 5 (ICD-10-PCS; 2020-04-24)
PROC: 5A1945Z Respiratory Ventilation, 24-96 Consecutive Hours (ICD-10-PCS; principal; 2020-04-27)
PROC: 0BH17EZ Insertion of Endotracheal Airway into Trachea, Via Natural or Artificial Opening (ICD-10-PCS; 2020-04-27)
PROC: 02HV33Z Insertion of Infusion Device into Superior Vena Cava, Percutaneous Approach (ICD-10-PCS; 2020-04-30)
PROC: B548ZZA Ultrasonography of Superior Vena Cava, Guidance (ICD-10-PCS; 2020-04-30)
PROC: 5A12012 Performance of Cardiac Output, Single, Manual (ICD-10-PCS; 2020-04-30)
PROC: 5A1D70Z Performance of Urinary Filtration, Intermittent, Less than 6 Hours Per Day (ICD-10-PCS; 2020-04-30)
DX: A41.9 Sepsis, unspecified organism (principal); E11.10 Type 2 diabetes mellitus with ketoacidosis without coma; J18.1 Lobar pneumonia, unspecified organism; U07.1 COVID-19; J10.08 Influenza due to other identified influenza virus with other specified pneumonia; J12.82 Pneumonia due to coronavirus disease 2019; J96.21 Acute and chronic respiratory failure with hypoxia; G93.41 Metabolic encephalopathy; N17.0 Acute kidney failure with tubular necrosis; R65.21 Severe sepsis with septic shock; I63.9 Cerebral infarction, unspecified; E87.0 Hyperosmolality and hypernatremia; Z66 Do not resuscitate; E11.22 Type 2 diabetes mellitus with diabetic chronic kidney disease; E87.5 Hyperkalemia; I12.9 Hypertensive chronic kidney disease with stage 1 through stage 4 chronic kidney disease, or unspecified chronic kidney disease; N18.9 Chronic kidney disease, unspecified; R13.10 Dysphagia, unspecified; E11.65 Type 2 diabetes mellitus with hyperglycemia; I46.9 Cardiac arrest, cause unspecified; Z85.46 Personal history of malignant neoplasm of prostate
CPT/HCPCS: 36415; 36600; 70450; 71045; 74018; 80048; 80053; 81001; 82009; 82150; 82550; 82728; 82803; 82948; 83036; 83605; 83615; 83690; 83735; 83880; 84100; 84439; 84443; 84484; 85025; 85379; 85384; 85610; 85730; 86140; 86704; 86706; 86708; 86709; 86803; 86886; 86900; 86901; 87040; 87070; 87081; 87086; 87205; 87420; 87804; 92610; 93005; 94003; 96365; 96375; 97110; 97112; 97161-GP; 99291; J0696; J1100; J1265; J1644; J1650; J1815; J2060; J2270; J2704; J2997; J3010; J3480; J3490; J7030; J7060; P9017; U0003